=== PATIENT | female | born 2000 | race Caucasian/White ===

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

== ENCOUNTER → 2022-03-17 16:41 | Outpatient (CLI) | payer OTHER, SELFPAY ==
[2022-03-17 20:01] LABS: HCG,Quantitative 46 mIU/ml (0-5.42)
== END ==
PROVIDERS: PCP Nurse Practitioner Pediatrics; Visit Provider Obstetrics & Gynecology
DX: Z34.90 Encounter for supervision of normal pregnancy, unspecified, unspecified trimester (principal)
CPT/HCPCS: 36415; 84702

== ENCOUNTER → 2022-03-28 16:49 | Outpatient (CLI) | payer OTHER, SELFPAY ==
[2022-03-28 19:08] LABS: HCG,Quantitative 5783 mIU/ml (0-5.42)
== END ==
PROVIDERS: PCP Obstetrics & Gynecology; Visit Provider Obstetrics & Gynecology
DX: Z34.91 Encounter for supervision of normal pregnancy, unspecified, first trimester (principal)
CPT/HCPCS: 36415; 84702

== ENCOUNTER → 2022-04-01 15:00 | Outpatient (CLI) | payer OTHER, SELFPAY ==
[2022-04-05 00:09] LABS: Neisseria gonorrhoeae, NAA Negative (Negative)
== END ==
PROVIDERS: Visit Provider Obstetrics & Gynecology
DX: Z34.90 Encounter for supervision of normal pregnancy, unspecified, unspecified trimester (principal)
CPT/HCPCS: 87491; 87591

== ENCOUNTER → 2022-05-08 15:23 | Outpatient (CLI) | payer OTHER, SELFPAY ==
[2022-05-08 18:57] LABS: Basophils # 0.1 K/mm3 (0-0.2); Basophils % 0.6 % (0.1-2.0); Eosinophils # 0.2 K/mm3 (0.0-0.4); Eosinophils % 2.8 % (0.1-12.0); Hematocrit 39.9 % (37.0-47.0); Hemoglobin 13.3 g/dL (12.2-16.2); Lymphocytes % 26.6 % (10-50); Mean Corpuscular HGB Conc 33.3 g/dL (31.8-35.4); Mean Corpuscular Hemoglobin 29.9 pg (27.0-31.2); Mean Corpuscular Volume 89.7 fl (81-99); Mean Platelet Volume 8.2 fl (7.4-10.4); Monocytes # 0.3 K/mm3 (0.1-1.0); Monocytes % 4.5 % (1.7-9.3); Neutrophils % 65.4 % (37.0-80.0); Platelet Count 276 K/mm3 (142-424); Red Blood Count 4.45 M/mm3 (4.20-5.40); Red Cell Distribution Width 13.3 % (11.5-17.5); White Blood Count 7.6 K/mm3 (4.5-13.0)
[2022-05-10 06:10] LABS: Rubella Antibodies, IgG 1.53 index (Immune >0.99)
[2022-05-10 14:46] LABS: Rapid Plasma Reagin Ab Titer Non Reactive (NonRea<1:1)
[2022-05-26 20:19] LABS: HIV Screen 4th Generation wRfx NON REACTIVE; Hepatitis B Surface Antigen NEGATIVE; Hepatitis C Antibody <0.1
== END ==
PROVIDERS: Visit Provider Obstetrics & Gynecology
DX: Z34.90 Encounter for supervision of normal pregnancy, unspecified, unspecified trimester (principal)
CPT/HCPCS: 36415; 85025; 86592; 86703; 86762; 86850; 87340; 87380; G0432

== ENCOUNTER → 2022-07-15 14:17 | Outpatient (CLI) | payer OTHER, SELFPAY ==
--- NOTE | 2022-07-15 14:17 | US_ITS ---
FINAL REPORT CLINICAL HISTORY: 20 week anatomy scan FINDINGS: There is a single live intrauterine gestation. Presentation is breech. The cervix is closed and measures 3.6 cm. Placenta is anterior grade 1. movement is noted. Heart rate measures 150 beats per minute. Three-vessel cord with satisfactory umbilical cord insertion. Four-chamber heart is noted. brain and ventricles are unremarkable. Chest and diaphragm are unremarkable. ABDOMEN: Both kidneys are unremarkable. Stomach is unremarkable. SPINE: No anomalies identified. Both arms and legs noted. AMNIOTIC FLUID: Appropriate amount. MEASUREMENTS: ULTRASOUND AGE: 20 weeks 3 days. GESTATION AGE: 20 weeks 5 days. ESTIMATED WEIGHT: 356 g GROWTH PERCENTILE: 32% LMP percentile BPD: 4.7 cm corresponding with 20 weeks 2 days. OFD: 6.3 cm corresponding with 21 weeks 0 days. HC: 17.4 cm corresponding with 20 weeks 0 days. AC: 15.4 cm corresponding to 20 weeks 4 days. FL: 3.4 cm corresponding with 20 weeks 4 days. CEREBELLUM: 2.1 cm corresponding with 21 weeks 0 days. HUMERUS: 3.2 cm corresponding with 21 weeks 0 days. HC/AC: 1.13 CI: 75% FL/BPD: 72% FL/AC: 22% IMPRESSION: Single living IUP with an ultrasound age of 20 weeks 3 days. No gross anomalies noted. Reviewed, Interpreted and Dictated by Capo Noel III, MD Transcribed by Tracy Ro Authenticated and [facility]
== END ==
PROVIDERS: PCP Obstetrics & Gynecology; Visit Provider Obstetrics & Gynecology
DX: Z34.90 Encounter for supervision of normal pregnancy, unspecified, unspecified trimester (principal); Z3A.20 20 weeks gestation of pregnancy
CPT/HCPCS: 76811

== ENCOUNTER → 2022-09-02 09:21 | Outpatient (CLI) | payer OTHER, SELFPAY ==
[2022-09-02 09:40] LABS: Basophils % 0.2 % (0.1-2.0); Eosinophils # 0.4 K/mm3 (0.0-0.4); Eosinophils % 3.4 % (0.1-12.0); Hematocrit 38.1 % (37.0-47.0); Hemoglobin 12.4 g/dL (12.2-16.2); Lymphocytes # 1.9 K/mm3 (0.7-4.5); Lymphocytes % 17.6 % (10-50); Mean Corpuscular HGB Conc 32.4 g/dL (31.8-35.4); Mean Corpuscular Hemoglobin 29.3 pg (27.0-31.2); Mean Corpuscular Volume 90.5 fl (81-99); Mean Platelet Volume 8.1 fl (7.4-10.4); Monocytes # 0.6 K/mm3 (0.1-1.0); Monocytes % 5.6 % (1.7-9.3); Neutrophils # 7.7 K/mm3 (1.8-7.8); Neutrophils % 73.2 % (37.0-80.0); Platelet Count 240 K/mm3 (142-424); Red Blood Count 4.21 M/mm3 (4.20-5.40); White Blood Count 10.5 K/mm3 (4.8-10.8)
[2022-09-02 09:53] LABS: Glucose,Fasting 98 mg/dl (74-100)
[2022-09-02 11:53] LABS: Glucose 1 Hour 88 mg/dL (74-100)
== END ==
PROVIDERS: PCP Nurse Practitioner Family; Visit Provider Obstetrics & Gynecology
DX: Z34.90 Encounter for supervision of normal pregnancy, unspecified, unspecified trimester (principal)
CPT/HCPCS: 36415; 82951; 85025

== ENCOUNTER → 2022-10-21 10:15 | Outpatient (CLI) | payer OTHER, SELFPAY ==
--- NOTE | 2022-10-21 10:16 | US_ITS ---
FINAL REPORT CLINICAL HISTORY: sga growth and umbilical dopplers performed as well FINDINGS: There is a single live intrauterine gestation. Presentation is cephalic. The cervix is closed and measures 4.1 cm. Placenta is anterior grade 1. Fetus is active. No gross anomaly identified. The S/D is 2.88. Amniotic fluid is appropriate amount. heart rate detected at 147 beats per minute. MEASUREMENTS: ULTRASOUND AGE: 34 weeks 6 days. GESTATION AGE: 34 weeks 5 days. ESTIMATED WEIGHT: 2472 g GROWTH PERCENTILE: 42% BPD: 8.33 cm corresponding to 33 weeks 4 days. HC: 32.04 cm corresponding to 36 weeks 1 day. AC: 30.65 cm corresponding to 34 weeks 5 days. FL: 6.70 cm corresponding to 34 weeks 4 days. HUMERUS: 5.84 cm corresponding to 33 weeks 6 days. HC/AC: 1.05 FL/BPD: 80 % FL/AC: 22% BREATHIN MOVEMENT: 2 TONE: 2 FLUID VOLUME: 2 BPP SCORE: 8 IMPRESSION: Single living IUP with an ultrasound age of 34 weeks 6 days. BPP SCORE: 8/8 Reviewed, Interpreted and Dictated by Mathew Dejesus MD Transcribed by Renata Baird Authenticated and [facility]
== END ==
PROVIDERS: PCP Nurse Practitioner Family; Visit Provider Obstetrics & Gynecology
DX: O36.5990 Maternal care for other known or suspected poor fetal growth, unspecified trimester, not applicable or unspecified (principal)
CPT/HCPCS: 76816; 76819; 76820

== ENCOUNTER → 2022-11-08 09:00 | Outpatient (CLI) | payer OTHER, SELFPAY | PROVIDERS: Visit Provider Obstetrics & Gynecology | DX: Z34.93 Encounter for supervision of normal pregnancy, unspecified, third trimester (principal); Z3A.31 31 weeks gestation of pregnancy | CPT/HCPCS: 86403 ==

== ENCOUNTER 2022-11-14 13:48 | Outpatient (CLI) | payer OTHER, SELFPAY ==
[2022-11-14 14:06] VITALS: BMI 36.6
[2022-11-14 14:11] VITALS: BP 126/83; PULSE 105; RESP 16; TEMP 37.1; O2SAT 95; BMI 36.6
[2022-11-14 14:16] LABS: Microscopic, Urine URINE MICROSCOPIC (MICROSCOPIC)
[2022-11-14 14:20] LABS: Appearance,Urine CLEAR (Clear); Bilirubin,Urine Negative (Negative); Blood, Urine Negative (Negative); Color,Urine YELLOW (Yellow); Glucose,Urine (UA) Negative (Negative); Ketones,Urine Negative (Negative); Leukocyte Esterase,Urine Negative (Negative); Nitrate,Urine Negative (Negative); Protein,Urine Negative (Negative); Specific Gravity, Urine 1.015 (1.005-1.030)
[2022-11-14 14:26] LABS: Bacteria,Urine Trace /lpf; WBC,Urine Occasional #/hpf (0-3)
[2022-11-14 14:31] LABS: Amphetamine/Metha Screen,Urine Negative ng/ml (<1000); Benzodiazepines Screen,Urine Negative ng/ml (<200)
[2022-11-14 14:32] LABS: Barbiturates Screen,Urine Negative ng/ml (<200)
[2022-11-14 14:33] LABS: Cocaine Screen,Urine Negative ng/ml (<300)
[2022-11-14 14:34] LABS: Methadone Screen,Urine Negative ng/ml (<300); Opiate Screen,Urine Negative ng/ml (<300)
[2022-11-14 14:35] LABS: Phencyclidine Screen,Urine Negative ng/ml (<25)
[2022-11-14 14:41] LABS: Cannabinoid Screen,Urine Negative ng/ml (<50)
== END 2022-11-14 15:47 | disposition home or self-care (01) ==
LOC: OBOUT 13:50 → OB 13:50
PROVIDERS: Visit Provider Nurse Practitioner Obstetrics & Gynecology
DX: Z34.93 Encounter for supervision of normal pregnancy, unspecified, third trimester (principal); Z3A.38 38 weeks gestation of pregnancy
CPT/HCPCS: 59025; 80305; 81001; G0463

== ENCOUNTER 2022-11-17 04:50 | Inpatient (IN) | payer OTHER, SELFPAY ==
[2022-11-17] VITALS (7 sets, daily range): BP systolic 122–126; BP diastolic 64–74; PULSE 83–110; RESP 18–20; TEMP 36.5–36.9; O2SAT 96–100; BMI 36.6
[2022-11-17 06:11] LABS: Basophils % 0.3 % (0.1-2.0); Coronavirus 19, PCR Not Detected (NotDetected); Eosinophils # 0.3 K/mm3 (0.0-0.4); Eosinophils % 3.9 % (0.1-12.0); Hematocrit 34.7 % (37.0-47.0); Hemoglobin 11.2 g/dL (12.2-16.2); Influenza A, PCR Not Detected (NotDetected); Influenza B, PCR Not Detected (NotDetected); Lymphocytes # 1.9 K/mm3 (0.7-4.5); Lymphocytes % 24.5 % (10-50); Mean Corpuscular HGB Conc 32.4 g/dL (31.8-35.4); Mean Corpuscular Volume 83.5 fl (81-99); Mean Platelet Volume 8.7 fl (7.4-10.4); Monocytes # 0.6 K/mm3 (0.1-1.0); Monocytes % 7.8 % (1.7-9.3); Neutrophils # 4.8 K/mm3 (1.8-7.8); Neutrophils % 63.6 % (37.0-80.0); Platelet Count 213 K/mm3 (142-424); Red Blood Count 4.16 M/mm3 (4.20-5.40); Red Cell Distribution Width 14.7 % (11.5-17.5); White Blood Count 7.6 K/mm3 (4.8-10.8)
--- NOTE | 2022-11-17 09:20 | EXP.HP ---
History of Present Illness *Admission Date: 11/17/22 *Reason for visit:: Induction of labor *History of present illness: 22 yo @ 38 08/29 Admission for induction of labor care at [facility]-- Dr. Stark OB history significant for previous at 40 wks EFW for this was 42% at 34 weeks with appropriate NAV and G1 placenta She has been symptomatic with anemia (Hgb 11.2) and concerned about intemittently decreased movement has been otherwise uncomplicated GBS negative [facility] Disclaimer: The information contained in this section may have been updated after the patient was seen, as this information can be updated by other users. Medical History Surgical History No history of previous surgery Family History Other No significant family history Social History Smoking Status: Never smoker alcohol intake: never substance use type: denies use current occupational status: employed Travel in the last 8 weeks: None Review of Systems Review of Systems Review of systems:: pertinent systems reviewed and negative unless documented below Review of systems (narrative): intermittent decrease in movement Constitutional Constitutional: Reports fatigue and Denies headache(s) ENT Ears, Nose, Mouth, and Throat: Denies headache(s) *Cardiovascular Cardiovascular: Reports rapid heart rate *Genitourinary Genitourinary: Denies abnormal vaginal bleeding Comments: + contractions *Musculoskeletal Musculoskeletal: Reports back pain *Neurologic Neurologic: Denies headache(s) and Denies other visual disturbances Endocrine Endocrine: Reports fatigue Meds Home Medications and Allergies Home Medications Medication Instructions Recorded Confirmed Type vit no.95-ferrous 1 tab PO DAILY Supplement 11/17/22 11/17/22 History fumarate 28 mg-folic acid 800 mcg tablet () New Prescriptions to Start Prescriptions: Allergies Allergy/AdvReac Type Severity Reaction Status Date / Time No Known Allergies Allergy Verified 11/13/22 15:33 Exam Data for Last 24 hours Vital signs and Labs for Last 24 Hours: Temp Pulse Resp BP Pulse Ox 97.7 F 92 H 18 125/69 96 11/17/22 07:30 06/26/23 07:30 11/17/22 07:30 11/17/22 07:30 11/17/22 07:30 Laboratory Results - last 24 hr 11/17/22 05:05: WBC 7.6, RBC 4.16 L, Hgb 11.2 L, Hct 34.7 L, MCV 83.5, MCH 27.0, MCHC 32.4, RDW 14.7, Plt Count 213, MPV 8.7, Neut % (Auto) 63.6, Lymph % (Auto) 24.5, [place] % (Auto) 7.8, Eos % (Auto) 3.9, Baso % (Auto) 0.3, Neut # (Auto) 4.8, Lymph # (Auto) 1.9, [place] # (Auto) 0.6, Eos # (Auto) 0.3, Baso # (Auto) 0.0 11/17/22 05:05: SARS-CoV-2 (PCR) Not detected, Influenza A Untype (PCR) Not detected, Influenza Type B (PCR) Not detected 11/17/22 05:05: Blood Type A Positive, Antibody Screen Negative I & O for Last 24 hours: Intake & Output 11/14/22 11/15/22 11/16/22 11/17/22 11:59 11:59 11:59 11:59 Weight 207 lb 0.013 oz Constitutional Constitutional: no acute distress *Routine HEENT Exam Head: Present normocephalic Eye: Absent conjunctival icterus or scleral injection ENT: Present mucous membranes moist *Routine Neck Exam Neck: Present supple *Routine Respiratory Exam Respiratory: Present CTA bilaterally; Absent respiratory distress *Routine Cardiovascular Exam Cardiovascular: Present RRR *Routine Abdominal Exam Abdominal: Present soft; Absent tenderness or distended *Routine Rectal Exam Rectal:: deferred *Routine Genitalia Exam Genitalia:: normal female Comment:: Cervix 3/70/-2 AROM with clear fluid IUPC and FSE placed without difficulty or complication *Routine Extremities Exam Extremities: Present edema (1+) *Routine Skin Exam
--- NOTE | 2022-11-17 12:44 | P.PN_ITS ---
[facility] Disclaimer: The information contained in this section may have been updated after the patient was seen, as this information can be updated by other users. Medical History Surgical History No history of previous surgery Family History Other No significant family history Social History Smoking Status: Never smoker alcohol intake: never substance use type: denies use current occupational status: employed Travel in the last 8 weeks: None [facility] Anesthesia Checklist Patient Identification Patient Identification: Arm Band Structural Data Admitted From: Inpatient Planned Operative Procedure/s: Labor epidural Consent for Planned Operative Procedure(s) Verified: Yes NPO Status Verified Time NPO: 00:00 Chart Verification Results Verified: CBC Additional verifications Patient : Yes Anesthesia Reactions: No Airway Assessment C-Spine Mobility Assessed: Yes TMJ Mobility Assessed: Yes Dentition: Good Dentition Neurological Assessment Level of Consciousness: Awake Hx Seizures: No Numbness or tingling in extremities: No Anesthesia Plan Anesthesia Risk discussed: Yes Anesthesia Plan: Verified ASA Class: II Anesthesia Type: Epidural
--- NOTE | 2022-11-17 20:47 | EXP.DN ---
Delivery Note Delivery Date:: 11/17/22 Delivery Time:: 20:24 Anesthesia Type: Epidural Was labor medically induced?: Yes Induction method: per pitocin protocol Gestational age (weeks): 38 delivered prior to 39 weeks?: Yes Justification for early elective delivery:: Blood/Immune Disorder Gender: Female at 1 minute: 7 at 5 minutes: 9 Delivery Procedure:: Progression from 5cm to complete in less than 2 hours Spontaneous vaginal delivery of live born female infant over intact perineum. Delivery was uncomplicated, and pushing occurred over 2 contractions Nuchal cord x 2 reduced on perineum No shoulder dystocia with delivery Infant taken to radiant warmer immediately after delivery, with standard nursing assessment performed Apgars: 7 & 9 Placenta spontaneously expressed and examined; noted to be complete/intact. The uterus was manually evacuated of clot and fundal massage performed following delivery of placenta Vulva, vagina, and cervix inspected; no perineal, vaginal or cervical lacerations present EBL: 300 cc Cord segment preserved, per protocol All sponge/needle/instrument counts correct at conclusion of procedure Infant was placed in JULIA after nursing assessment completed; with mother and infant both in stable condition following delivery Placental Delivery Description: Spontaneous
[2022-11-18 02:52] LABS: Microscopic, Urine URINE MICROSCOPIC (MICROSCOPIC)
[2022-11-18 02:53] LABS: Appearance,Urine CLOUDY (Clear); Bilirubin,Urine Negative (Negative); Blood, Urine Negative (Negative); Color,Urine YELLOW (Yellow); Glucose,Urine (UA) Negative (Negative); Ketones,Urine Negative (Negative); Leukocyte Esterase,Urine 3+ (Negative); Nitrate,Urine Negative (Negative); PH,Urine 6.5 (5.0-8.5); Protein,Urine Negative (Negative); Specific Gravity, Urine 1.025 (1.005-1.030); Urobilinogen,Urine 0.2 EU/dl (0.2)
[2022-11-18 03:06] LABS: Amphetamine/Metha Screen,Urine Negative ng/ml (<1000)
[2022-11-18 03:07] LABS: Barbiturates Screen,Urine Negative ng/ml (<200)
[2022-11-18 03:08] LABS: Benzodiazepines Screen,Urine Negative ng/ml (<200); Cannabinoid Screen,Urine Negative ng/ml (<50)
[2022-11-18 03:09] LABS: Cocaine Screen,Urine Negative ng/ml (<300); Methadone Screen,Urine Negative ng/ml (<300)
[2022-11-18 03:10] LABS: Phencyclidine Screen,Urine Negative ng/ml (<25)
[2022-11-18 03:11] LABS: Opiate Screen,Urine Negative ng/ml (<300)
[2022-11-18 03:46] LABS: Amorphous Sediment,Urine 1+ /lpf; Bacteria,Urine 1+ /lpf; Mucus,Urine 1+ /lpf; WBC,Urine 20-50 #/hpf (0-3)
[2022-11-18 06:43] LABS: Hemoglobin 10.5 g/dL (12.2-16.2)
[2022-11-18 07:26] VITALS: BP 115/63; PULSE 80; RESP 20; TEMP 36.6; O2SAT 100
[2022-11-18 11:47] VITALS: BP 122/71; PULSE 82; RESP 18; TEMP 36.5; O2SAT 98
--- NOTE | 2022-11-18 13:16 | EXP.ACUTE.PN ---
Subjective *Date: 11/18/22 *Time: 13:22 Interval history: PPD # 1 No unusual complaints Ambulating and voiding without difficulty Tolerating regular diet Lochia appropriate Pain control is sufficient She is bottle feeding Infant is doing well Medical Exam Vital signs and Labs for Last 24 Hours: Vital Signs Temp Pulse Resp BP Pulse Ox 11/18/22 11:47 97.7 F 82 18 122/71 98 11/18/22 07:26 97.8 F 80 20 115/63 100 11/17/22 18:16 98.1 F 11/17/22 16:12 97.7 F 11/17/22 14:08 97.8 F 11/17/22 15:50 97.8 F 87 20 122/64 100 Intake and Output 11/18/22 11/18/22 11/18/22 03:59 11:59 19:59 Output Total 400 / 1300 Balance -400 / -1300 Output: Output, Urine Amount (Catheter) 400 / 400 Mejia 400 / 400 Laboratory Results - last 24 hr 11/17/22 21:50: Urine Color Yellow, Urine Appearance Cloudy, Urine pH 6.5, Ur Specific [place] 1.025, Urine Protein Negative, Urine Glucose (UA) Negative, Urine Ketones Negative, Urine Blood Negative, Urine Nitrate Negative, Urine Bilirubin Negative, Urine Urobilinogen 0.2, Ur Leukocyte Esterase 3+ A, Urine WBC 20-50, Ur Squamous Epith Cells 3-5, Amorphous Sediment 1+, Urine Bacteria 1+, Urine Mucus 1+ 11/17/22 21:50: Urine Opiates Screen Negative, Urine Methadone Screen Negative, Ur Barbituates Screen Negative, Ur Phencyclidine Scrn Negative, Ur Amphetamines Screen Negative, U Benzodiazepines Scrn Negative, Urine Cocaine Screen Negative, U Marijuana (THC) Screen Negative 11/18/22 06:21: Hgb 10.5 L, Hct 32.0 L I & O for Labs for Last 24 Hours: Intake & Output 11/16/22 11/17/22 11/18/22 11/19/22 11:59 11:59 11:59 11:59 Output Total 1300 / 1300 Balance -1300 / -1300 Weight 207 lb 0.013 oz Comment:: No acute distress Comment:: breathing unlabored Comment:: Regular rate, normal peripheral pulses Comments:: abdomen soft, non-tender, non-distended Comment:: uterine fundus firm below umbilicus Comment:: 1+ edema bilateral lower extremities Comment:: no rash Assessment and Plan *Assessment and plan (1) 38 weeks gestation of : Status: Acute Category: Medical Code(s): Z3A.38 - 38 weeks gestation of (2) Anemia affecting : Status: Acute Category: Medical Code(s): O99.019 - Anemia complicating , unspecified trimester (3) Normal spontaneous vaginal delivery: Status: Acute Category: Medical Code(s): O80 - Encounter for full-term uncomplicated delivery Plan Routine care Continue FeSO4 Anticipate discharge home tomorrow
[2022-11-18 15:40] VITALS: BP 135/65; PULSE 78; RESP 20; TEMP 36.6; O2SAT 98
--- NOTE | 2022-11-19 09:09 | EXP.DC.SUM ---
General Admission date:: 11/17/22 Discharge date: 11/19/22 HPI HPI HPI: 22 yo @ 38 08/29 Admission for induction of labor care at [facility]-- Dr. Stark OB history significant for previous at 40 wks EFW for this was 42% at 34 weeks with appropriate NAV and G1 placenta She has been symptomatic with anemia (Hgb 11.2) and concerned about intemittently decreased movement has been otherwise uncomplicated GBS negative Hospital Course Hospital Course Hospital Course: She was admitted and started on IV oxytocin. She progressed to full dilation and delivered spontaneously a liveborn female child at 8:24 PM in the evening of November 17, 2022. The baby had Apgars of 7 at 1 minute and 9 at 5 minutes. Baby weighed 8 pounds 1 ounce. She was 20-1/2 inches long. She has done well and has remained afebrile with her hospitalization. She is eating and drinking and ambulating. She is bottlefeeding. She has a positive blood, she is rubella immune and was group B streptococcus negative. She will be discharged home to follow-up with Dr. Stark in approximately 2 to 3 weeks time. She will continue with her vitamins and iron. She is given the usual instructions with respect to limiting her activity, driving and sexual activity. She is not sure what type of control she would like to have . Her condition on discharge is stable and improved. Exam Data for Last 24 hours Vital signs and Labs for Last 24 Hours: Temp Pulse Resp BP Pulse Ox 97.8 F 78 20 135/65 98 11/18/22 15:40 11/18/22 15:40 11/18/22 15:40 11/18/22 15:40 11/18/22 15:40 I & O for Last 24 hours: Intake & Output 11/16/22 11/17/22 11/18/22 11/19/22 11:59 11:59 11:59 11:59 Output Total 1300 / 1300 0 / 0 Balance -1300 / -1300 0 / 0 Weight 207 lb 0.013 oz Microbiology Reports for the Last 24 Hours: Microbiology 11/17/22 21:50 Urine,Clean Catch Urine Culture - Preliminary NO GROWTH AFTER 24 HOURS Constitutional Constitutional: no acute distress *Routine HEENT Exam Head: Present normocephalic *Routine Neck Exam Neck: Present full ROM *Routine Respiratory Exam Respiratory: Present normal respiratory effort Results Data Completed and Pending Labs on day of discharge: Preliminary micro results at discharge 11/17/22 21:50 Urine Culture - Preliminary Urine,Clean Catch NO GROWTH AFTER 24 HOURS DS: Diagnosis Discharge Diagnosis (1) 38 weeks gestation of : Status: Acute Code(s): Z3A.38 - 38 weeks gestation of (2) Anemia affecting : Status: Acute Code(s): O99.019 - Anemia complicating , unspecified trimester (3) Normal spontaneous vaginal delivery: Status: Acute Code(s): O80 - Encounter for full-term uncomplicated delivery Meds Home Medications and Allergies Home Medications Medication Instructions Recorded Confirmed Type vit no.95-ferrous 1 tab PO DAILY Supplement 11/17/22 11/17/22 History fumarate 28 mg-folic acid 800 mcg tablet () New Prescriptions to Start Prescriptions: Allergies Allergy/AdvReac Type Severity Reaction Status Date / Time No Known Allergies Allergy Verified 11/13/22 15:33 Discharge Plan Disposition Patient Disposition: Home, Self-Care Discharge Order Discharge Orders: Discharge Order (Routine); Ordered 11/19/22 Ordered By: Kamaljit Barker Follow up Plan Prescriptions/Medication Reconciliation: Continued PNV cmb#95-ferrous fumarate-FA [] 28 mg iron- 800 mcg Tablet 1 tab PO DAILY Problem Reconciliation Problems Reviewed?: Yes Patient Discharge Instructions ACTIVITY: No heavy lifting DIET: continue same diet Additional Instructions: *No heavy lifting* *No strenuous activity* *Nothing in the vagina for 6 weeks* *No tub baths for 6 weeks* Waylon
[2022-11-19 09:20] VITALS: BP 104/53; PULSE 86; RESP 16; TEMP 36.6; O2SAT 97
== END 2022-11-19 11:50 | disposition home or self-care (01) | DRG 807 ==
PROVIDERS: Admitting Provider Obstetrics & Gynecology; PCP Nurse Practitioner Family; Visit Provider Obstetrics & Gynecology
DX: O36.8130 Decreased fetal movements, third trimester, not applicable or unspecified (principal); Z37.0 Single live birth; O99.02 Anemia complicating childbirth; O99.214 Obesity complicating childbirth; Z3A.38 38 weeks gestation of pregnancy; O69.81X0 Labor and delivery complicated by cord around neck, without compression, not applicable or unspecified; E66.01 Morbid (severe) obesity due to excess calories
CPT/HCPCS: 59409; 59025; 80305; 81001; 85014; 85018; 85025; 86850; 87086; 87636; 94761; C1758; C9803; G0283; G0463; J2405; U0003; U0005

== ENCOUNTER 2023-09-05 17:44 | Day surgery (SDC) | payer MEDICAID, SELFPAY ==
--- NOTE | 2023-09-05 17:53 | CT_ITS ---
PROCEDURE INFORMATION: Exam: CT Chest With Contrast; Diagnostic Exam date and time: 09/05/2023 6:41 PM Age: 23 years old Clinical indication: Other: Dysphagia; Additional info: Chronic dysphagia, possible food bolus TECHNIQUE: Imaging protocol: Diagnostic computed tomography of the chest with contrast. Radiation optimization: All CT scans at this facility use at least one of these dose optimization techniques: automated exposure control; mA and/or kV adjustment per patient size (includes targeted exams where dose is matched to clinical indication); or iterative reconstruction. Contrast material: ISOVUE; Contrast volume: 75 ml; Contrast route: IV; COMPARISON: No relevant prior studies available. FINDINGS: Lungs: Normal. Pleural spaces: Unremarkable. No pneumothorax. No pleural effusion. Heart: Normal. Esophagus: 3.6 x 1.9 cm heterogeneous collection of material within the distal thoracic esophagus, with minimal surrounding esophageal wall thickening and mild gas and fluid dilation of the proximal thoracic esophagus. Lymph nodes: No pathologically-enlarged lymph nodes. Vasculature: Unremarkable. No aortic aneurysm. Bones/joints: No acute fracture. Soft tissues: Normal. IMPRESSION: 3.6 x 1.9 cm heterogeneous collection of material within the distal thoracic esophagus, with minimal surrounding esophageal wall thickening and mild gas and fluid dilation of the proximal thoracic esophagus. Findings most compatible with impacted food bolus, with mild esophageal edema and esophageal obstruction. No evidence of esophageal perforation.
[2023-09-05 17:55] VITALS: BP 123/93; PULSE 106; RESP 18; TEMP 37.3; O2SAT 95; BMI 37.2
--- NOTE | 2023-09-05 17:55 | HMH.EDGENADL ---
Discharge Plan Disposition Patient Disposition: Still a Patient Condition: Good Clinical Impressions Clinical Impression: Acute esophageal obstruction Discharge ED Provider: Manoj Alicea General Adult HPI General Chief complaint: Nausea/Vomiting/Diarrhea Stated complaint: Sore throat,vomiting,tightening in throat Time Seen by Provider: 09/05/23 17:48 History of Present Illness HPI narrative: Patient is a 23-year-old female with past medical history of chronic dysphagia who presents emergency department for evaluation of abnormal sensation in her throat. Patient is allergic to egg whites, fish. She ate a hotdog few hours prior to arrival and has had a scratchy feeling in her throat with inability to pass solids or liquids with swallowing. Due to this she presents here for continued evaluation. Patient has never had esophageal obstruction before. She has not had her dysphagia for months evaluated due to missing her appointment with GI as she could not get off work. No abdominal pain, no other acute complaints at this time. Symptoms refractory to Benadryl at home. Related Data Home Medications Medication Instructions Recorded Confirmed vit no.95-ferrous 1 tab PO DAILY Supplement 11/17/22 12/01/22 fumarate 28 mg-folic acid 800 mcg tablet () Allergies Allergy/AdvReac Type Severity Reaction Status Date / Time No Known Allergies Allergy Verified 12/01/22 09:43 [facility] Disclaimer: The information contained in this section may have been updated after the patient was seen, as this information can be updated by other users. Surgical History No history of previous surgery Family History Other No significant family history Social History Smoking Status: Current every day smoker alcohol intake: never substance use type: denies use current occupational status: employed Travel in the last 8 weeks: None ROS Obtained: Yes Systems reviewed as appropriate & no additional complaints except as documented Physical Exam General General appearance: alert and in no apparent distress Head Head exam: atraumatic and normocephalic Eye Eye exam: Present PERRL and EOMI ENT ENT exam: Present normal oropharynx and mucous membranes moist Neck Neck exam: Present normal inspection Chest Chest inspection: Present normal inspection and symmetric chest wall rise Respiratory Respiratory exam: Present normal lung sounds bilaterally; Absent respiratory distress Cardiovascular Cardiovascular exam: Present regular rate and normal rhythm Abdominal Exam Abdominal exam: Present soft; Absent tenderness Extremities Exam Extremities exam: Present normal inspection Neurological Exam Neurological exam: Present alert Psychiatric Psychiatric exam: Present normal affect Skin Skin exam: Present warm and dry Medical Decision Making Elijah Inquiry Pt receiving controlled substance: No Vital Signs: 09/05/23 17:55 09/05/23 18:31 09/05/23 19:23 Temperature 99.1 F 98.0 F Temperature Source Oral Oral Pulse Rate 107 H 79 Pulse Rate [Right] 106 H Respiratory Rate 18 16 Blood Pressure 132/75 124/95 H Blood Pressure [Right Arm] 123/93 H Blood Pressure Mean [Right Arm] 103 Blood Pressure Source Automatic Cuff Blood Pressure Position Sitting 02 Sat by Pulse Oximetry 95 97 Oxygen Delivery Method Room Air Room Air Lab Data Lab Results 09/05/23 18:06: WBC 7.0, RBC 5.18, Hgb 15.1, Hct 47.0, MCV 90.7, MCH 29.2, MCHC 32.2, RDW 14.3, Plt Count 280, MPV 7.5, Neut % (Auto) 52.8, Lymph % (Auto) 36.8, [place] % (Auto) 4.9, Eos % (Auto) 3.2, Baso % (Auto) 2.4 H, Neut # (Auto) 3.7, Lymph # (Auto) 2.6, [place] # (Auto) 0.3, Eos # (Auto) 0.2, Baso # (Auto) 0.2, Sodium 143, Potassium 3.6, Chloride 107, Carbon Dioxide 28, Anion Gap 11.6, BUN 10, Creatinine 0.90, Estimated Creat Clear 147, Estimated GFR 78, Est GFR ( Amer) 95, Glucose 105 H, Calcium 10.0, Serum HCG, Qual Negative 09/05/23 18:06 09/05/23 18:06 Orders (Tests/Meds): ED MEDICATIONS Discontinued Medications Generic Name Dose Route Start Last Admin Trade Name Freq PRN Reason Stop Dose Admin Iopamidol 75 ml 09/05/23 18:42 09/05/23 18:43 Iopamidol-370 (76%);100ml Bottle IV 09/05/23 18:43 75 ml ONCE ONE Administration Methylprednisolone Sodium Succinate 125 mg 09/05/23 17:56 09/05/23 18:02 Methylprednisolone Sod Succ 125mg Vial IV 09/05/23 17:57 125 mg ONCE ONE Administration Ondansetron HCl 4 mg 09/05/23 17:55 09/05/23 18:02 Ondansetron 4mg/2ml Vial IV 09/05/23 17:56 4 mg ONCE ONE Administration Sodium Chloride 10 ml 09/05/23 18:42 09/05/23 18:43 Sodium Chloride 0.9% 10ml Syr (Rad Only) IV 09/05/23 18:43 10 ml ONCE ONE Administration ORDERS Category Date Time Status CT chest w con Stat Cat Scan 09/05/23 17:53 Completed BMP [Basic Metabolic Panel] Stat Lab 09/05/23 18:06 Completed CBC w/Auto Diff [Complete Blood Count Auto Diff] Stat Lab 09/05/23 18:06 Completed HCG Qualitative, Serum Stat Lab 09/05/23 18:06 Completed Medical Decision Narrative: In summary patient is a 23-year-old female past medical history described above who presents emergency department for scratchy sensation in throat and inability to swallow with history of chronic dysphagia that is yet to be evaluated. Patient is hemodynamically stable nontoxic-appearing upon arrival, afebrile. Differential diagnosis includes esophageal food bolus, Schatzki's ring, esophagitis, among others. Workup will be conducted with hematologic labs, hCG, CT chest with IV contrast. Initial interventions include Zofran. Workup reviewed by me, hematologic labs are nonactionable, hCG negative. CT informally interpreted by me, there appears to be a distal esophageal obstruction with proximal fluid-filled esophagus. The case was discussed with Dr. Lynn regarding management patient will proceed to operating room for EGD at this time. Interval update: Formal read shows 3.6 x 1.9 cm heterogenous collection of material in distal esophagus with minimal surrounding esophageal wall thickening consistent with impacted food bolus, no evidence of esophageal perforation. Critical Care Critical Care Time Critical Care Time: No
[2023-09-05] MEDS: METHYLPREDNISOLONE SOD SUCC 125MG VIAL 125 MG IV (18:02)
[2023-09-05] MEDS: ONDANSETRON 4MG/2ML VIAL 4 MG IV (18:02)
[2023-09-05 18:23] LABS: Chloride 107 mmol/L (98-107); Potassium 3.6 mmoL/L (3.5-5.1); Sodium 143 mmol/L (136-145)
[2023-09-05 18:26] LABS: Anion Gap 11.6 mEq/L (5-15); Blood Urea Nitrogen 10 mg/dl (7-17); Carbon Dioxide 28 mmol/L (22.0-30.0); Creatinine Clearance Estimated 147 mL/min (50-200); Estimated Glomerular Filt Rate 78 ml/min (>60); GFR (African American) 95 ML/MIN (>60); Glucose 105 mg/dl (74-100)
[2023-09-05 18:28] LABS: HCG Qualitative, Serum Negative (Negative)
--- NOTE | 2023-09-05 18:29 | PC.NURSE ---
pt unable to tolerate po intake @ this time
[2023-09-05 18:31] VITALS: BP 132/75; PULSE 107; O2SAT 97
[2023-09-05 18:34] LABS: Basophils # 0.2 K/mm3 (0-0.2); Basophils % 2.4 % (0.1-2.0); Eosinophils # 0.2 K/mm3 (0.0-0.4); Eosinophils % 3.2 % (0.1-12.0); Hemoglobin 15.1 g/dL (12.2-16.2); Lymphocytes # 2.6 K/mm3 (0.7-4.5); Lymphocytes % 36.8 % (10-50); Mean Corpuscular HGB Conc 32.2 g/dL (31.8-35.4); Mean Corpuscular Hemoglobin 29.2 pg (27.0-31.2); Mean Corpuscular Volume 90.7 fl (81-99); Mean Platelet Volume 7.5 fl (7.4-10.4); Monocytes # 0.3 K/mm3 (0.1-1.0); Monocytes % 4.9 % (1.7-9.3); Neutrophils # 3.7 K/mm3 (1.8-7.8); Neutrophils % 52.8 % (37.0-80.0); Platelet Count 280 K/mm3 (142-424); Red Blood Count 5.18 M/mm3 (4.20-5.40); Red Cell Distribution Width 14.3 % (11.5-17.5)
--- NOTE | 2023-09-05 18:37 | PC.NURSE ---
pt at ct scan
[2023-09-05] MEDS: IOPAMIDOL-370 (76%);100ML BOTTLE 75 ML IV (18:43)
[2023-09-05] MEDS: SODIUM CHLORIDE 0.9% 10ML SYR (RAD ONLY) 10 ML IV (18:43)
--- NOTE | 2023-09-05 18:51 | PC.NURSE ---
Addendum entered by Cris Hill, DENA 09/05/23 18:55: paged Original Note: Paged per
--- NOTE | 2023-09-05 18:54 | PC.NURSE ---
Per call surgery team to do a scope on pt at 19:30
[2023-09-05 19:23] VITALS: BP 124/95; PULSE 79; RESP 16; TEMP 36.7; O2SAT 95
--- NOTE | 2023-09-05 19:23 | PC.NURSE ---
surgery nurse at bedside,
--- NOTE | 2023-09-05 19:32 | EXP.GEN.HP ---
HPI HPI HPI: Patient is a 23-year-old female with history of dysphagia for quite some time. She had previous endoscopy when she was in high school. She has had symptoms recently of dysphagia which has been self-limited. However, today, on 09/05/2023 she was eating a hot dog approximately 2:30 PM. She had symptoms of inability to swallow her secretions. She presented to the emergency department. Clinically consistent history with esophageal food impaction. She did have a CT scan which confirmed this. Surgical consultation was obtained. [facility] Disclaimer: The information contained in this section may have been updated after the patient was seen, as this information can be updated by other users. Surgical History No history of previous surgery Family History Other No significant family history Social History Smoking Status: Current every day smoker alcohol intake: never substance use type: denies use current occupational status: employed Travel in the last 8 weeks: None Meds Home Medications and Allergies Home Medications Medication Instructions Recorded Confirmed Type vit no.95-ferrous 1 tab PO DAILY Supplement 11/17/22 12/01/22 History fumarate 28 mg-folic acid 800 mcg tablet () New Prescriptions to Start Prescriptions: Allergies Allergy/AdvReac Type Severity Reaction Status Date / Time No Known Allergies Allergy Verified 12/01/22 09:43 Exam Data for Last 24 hours Vital signs and Labs for Last 24 Hours: Temp Pulse Resp BP Pulse Ox O2 Del Method 98.0 F 79 16 124/95 H 97 Room Air 09/05/23 19:23 09/05/23 19:23 09/05/23 19:23 09/05/23 19:23 09/05/23 18:31 09/05/23 19:23 Laboratory Results - last 24 hr 09/05/23 18:06: WBC 7.0, RBC 5.18, Hgb 15.1, Hct 47.0, MCV 90.7, MCH 29.2, MCHC 32.2, RDW 14.3, Plt Count 280, MPV 7.5, Neut % (Auto) 52.8, Lymph % (Auto) 36.8, [place] % (Auto) 4.9, Eos % (Auto) 3.2, Baso % (Auto) 2.4 H, Neut # (Auto) 3.7, Lymph # (Auto) 2.6, [place] # (Auto) 0.3, Eos # (Auto) 0.2, Baso # (Auto) 0.2, Sodium 143, Potassium 3.6, Chloride 107, Carbon Dioxide 28, Anion Gap 11.6, BUN 10, Creatinine 0.90, Estimated Creat Clear 147, Estimated GFR 78, Est GFR ( Amer) 95, Glucose 105 H, Calcium 10.0, Serum HCG, Qual Negative I & O for Last 24 hours: Intake & Output 09/03/23 09/04/23 09/05/23 09/06/23 11:59 11:59 11:59 11:59 Weight 210 lb Constitutional Constitutional: no acute distress *Routine HEENT Exam Head: Present normocephalic Eye: Present EOMI and PERRL ENT: Present mucous membranes moist *Routine Neck Exam Neck: Present supple; Absent lymphadenopathy *Routine Respiratory Exam Respiratory: Present CTA bilaterally *Routine Cardiovascular Exam Cardiovascular: Present RRR *Routine Abdominal Exam Abdominal: Present soft and normoactive bowel sounds; Absent tenderness *Routine Rectal Exam Rectal:: deferred *Routine Genitalia Exam Genitalia:: deferred *Routine Extremities Exam Extremities: Absent cyanosis, clubbing or edema *Routine Skin Exam Skin: Present warm; Absent rash *Routine Neurological Exam Neurological: Present alert and oriented X3 Results Results Lab Results Last 24 Hours:: Laboratory Results - last 24 hr 09/05/23 18:06: WBC 7.0, RBC 5.18, Hgb 15.1, Hct 47.0, MCV 90.7, MCH 29.2, MCHC 32.2, RDW 14.3, Plt Count 280, MPV 7.5, Neut % (Auto) 52.8, Lymph % (Auto) 36.8, [place] % (Auto) 4.9, Eos % (Auto) 3.2, Baso % (Auto) 2.4 H, Neut # (Auto) 3.7, Lymph # (Auto) 2.6, [place] # (Auto) 0.3, Eos # (Auto) 0.2, Baso # (Auto) 0.2, Sodium 143, Potassium 3.6, Chloride 107, Carbon Dioxide 28, Anion Gap 11.6, BUN 10, Creatinine 0.90, Estimated Creat Clear 147, Estimated GFR 78, Est GFR ( Amer) 95, Glucose 105 H, Calcium 10.0, Serum HCG, Qual Negative Assessment and Plan *Assessment and plan (1) Esophageal obstruction due to food impaction: Status: Acute Category: Medical Code(s): T18.128A - Food in esophagus causing other injury, initial encounter; W44.F3XA - Food entering into or through a natural orifice, initial encounter Plan Plan to proceed with endoscopy.
[2023-09-05 20:05] VITALS: BP 89/44; PULSE 83; RESP 16; TEMP 36.4; O2SAT 95
--- NOTE | 2023-09-05 20:06 | P.PCN_ITS ---
Procedure: Date: 09/05/23 Patient Date of :: 2000 Procedure Performed:: Esophagogastroduodenoscopy with retrieval of food impaction foreign body. Indications:: Patient is a 23-year-old female with history of dysphagia for quite some time. She had previous endoscopy when she was in high school. She has had symptoms recently of dysphagia which has been self-limited. Apparently she has had appointment with gastroenterology at [place] and was unable to keep this appointment due to work. However, today, on 09/05/2023 she was eating a hot dog approximately 2:30 PM. She had symptoms of inability to swallow her secretions. She presented to the emergency department. Clinically consistent history with esophageal food impaction. She did have a CT scan which confirmed this revealing 3.6 x 1.9 cm heterogeneous collection of material within the distal thoracic esophagus, with minimal surrounding esophageal wall thickening and mild gas and fluid dilation of the proximal thoracic esophagus. Findings most compatible with impacted food bolus, with mild esophageal edema and esophageal obstruction. No evidence of esophageal perforation.. Surgical consultation was obtained. Plan was made to proceed with emergent endoscopy. . Performing Provider:: Capo Lynn MD Referring Provider:: Dana Chan Sedation:: MAC sedation Procedure:: Patient history was obtained and appropriate physical examination was performed. Patient's medications and allergies were reviewed. Informed consent was obtained after explaining the benefits, alternatives, and risks of the procedure including, but not limited to, bleeding, perforation, missed lesions, and adverse reaction to anesthesia medications. Patient was transported to endoscopy procedure room. Patient was connected to monitoring devices. Throughout the procedure the patient's blood pressure, pulse, and oxygen saturations were monitored continuously. Patient identification and planned procedure were verified by the staff. Patient was positioned in lateral decubitus position. Olympus endoscope was inserted via the oropharynx and advanced into the esophagus. There were secretions present which were suctioned free. The distal esophagus there was obstruction secondary to food impaction. Initially attempt was made to retrieve the food bolus with the Keita net. This was inserted and a portion was retrieved as the endoscope was withdrawn. Remainder of food bolus was unable to be retrieved. Endoscope was withdrawn and the E suction device was attached. Endoscope was then reinserted and the remaining food bolus was extracted with the E suction device. It appeared as though this removed the obstruction. The E suction device was removed and the endoscope was reinserted. Esophagus was inspected. Gastroesophageal junction was encountered at approximately 36 cm from the incisors. Stomach was entered and insufflated. There was a significant amount of food matter present within the stomach. It was advanced to a short distance into the duodenum. Endoscope was then withdrawn. . Findings:: Esophageal obstruction secondary to food impaction at the GE junction Recommendations:: Recommend limited liquid diet for 24 hours then soft diet. Recommend eytv-nhu-vjfzkam omeprazole. Patient would likely benefit from follow-up with gastroenterology for elective endoscopy. Complications:: None immediately apparent Estimated blood obtained (mL): 1 Colonoscopy Component Colonoscopy Component Was a colonoscopy performed during today's procedure?: No
[2023-09-05 20:15] VITALS: BP 120/79; BP 90/58; PULSE 87; PULSE 94; RESP 17; RESP 18; O2SAT 96; O2SAT 99
--- NOTE | 2023-09-05 20:15 | P.PNANES_ITS ---
[facility] Disclaimer: The information contained in this section may have been updated after the patient was seen, as this information can be updated by other users. Surgical History No history of previous surgery Family History Other No significant family history Social History Smoking Status: Current every day smoker alcohol intake: never substance use type: denies use current occupational status: employed Travel in the last 8 weeks: None [facility] Anesthesia Checklist Patient Identification Patient Identification: Arm Band Structural Data Admitted From: Emergency Dept Planned Operative Procedure/s: EGD-Removal of Esophageal Food Bolus Consent for Planned Operative Procedure(s) Verified: Yes Verified Documents: Surgical Consent and History and Physical NPO Status Verified Time NPO: 14:30 (hot dog) Additional verifications Anesthesia Reactions: No Airway Assessment Mallampati Score:: Class II C-Spine Mobility Assessed: Yes TMJ Mobility Assessed: Yes Dentition: Good Dentition Neurological Assessment Level of Consciousness: Awake, Alert and Appropriate Anesthesia Plan Anesthesia Risk discussed: Yes Anesthesia Plan: Verified ASA Class: II (E) Anesthesia Type: MAC
[2023-09-05 20:25] VITALS: BP 104/61; PULSE 96; RESP 18; O2SAT 100
== END 2023-09-05 20:50 | disposition home or self-care (01) ==
LOC: ER 18:11 → SDC 19:23
PROVIDERS: Surgery; Emergency Provider Emergency Medicine; PCP Nurse Practitioner Family; Visit Provider Surgery
PROC: 0DJ08ZZ Inspection of Upper Intestinal Tract, Via Natural or Artificial Opening Endoscopic (ICD-10-PCS; CPT 43235; principal; 2023-09-05 19:30)
DX: R13.10 Dysphagia, unspecified (principal); T18.128A Food in esophagus causing other injury, initial encounter; W44.F3XA Food entering into or through a natural orifice, initial encounter
CPT/HCPCS: 43247; 71260; 80048; 84703; 85025; 99285; J2405; J2704; Q9967

== ENCOUNTER 2024-10-25 08:12 | Outpatient (CLI) | payer BC, MEDICAID, SELFPAY ==
[2024-10-25 09:16] LABS: HCG,Quantitative 645 mIU/ml (0-5.42)
[2024-10-26 13:44] LABS: Progesterone 8.7 ng/mL (.)
== END 2024-10-25 23:59 | disposition home or self-care (01) ==
PROVIDERS: PCP Nurse Practitioner Family; Visit Provider Nurse Practitioner Obstetrics & Gynecology
DX: Z32.01 Encounter for pregnancy test, result positive (principal)
CPT/HCPCS: 36415; 84144; 84702

== ENCOUNTER 2024-10-27 11:16 | Outpatient (CLI) | payer BC, MEDICAID, SELFPAY ==
[2024-10-27 12:45] LABS: HCG,Quantitative 1627 mIU/ml (0-5.42)
== END 2024-10-27 23:59 | disposition home or self-care (01) ==
LOC: LAB 11:16
PROVIDERS: PCP Nurse Practitioner Family; Visit Provider Obstetrics & Gynecology
DX: Z32.01 Encounter for pregnancy test, result positive (principal)
CPT/HCPCS: 36415; 84702

== ENCOUNTER 2024-11-15 09:57 | Outpatient (CLI) | payer BC, MEDICAID, SELFPAY ==
[2024-11-15 10:32] LABS: Basophils % 0.5 % (0.1-2.0); Eosinophils # 0.2 Kmm3 (0.0-0.4); Eosinophils % 3.3 % (0.1-12.0); Hematocrit 39.3 % (37.0-47.0); Hemoglobin 13.2 g/dL (12.2-16.2); Immature Granulocytes # 0.02 10^3uL; Immature Granulocytes % 0.3 %; Lymphocytes # 2.2 K/mm3 (0.7-4.5); Lymphocytes % 33.7 % (10-50); Mean Corpuscular HGB Conc 33.6 g/dL (31.8-35.4); Mean Corpuscular Volume 86.4 fl (81-99); Mean Platelet Volume 9.3 fl (7.4-10.4); Monocytes # 0.3 K/mm3 (0.1-1.0); Monocytes % 4.7 % (1.7-9.3); Neutrophils # 3.8 K/mm3 (1.8-7.8); Neutrophils % 57.5 % (37.0-80.0); Nucleated Red Blood Cells # 0 10^3/uL; Nucleated Red Blood Cells % 0 %; Platelet Count 243 K/mm3 (142-424); Red Blood Count 4.55 M/mm3 (4.20-5.40); Red Cell Distribution Width-SD 40.6 fL; White Blood Count 6.6 K/mm3 (4.8-10.8)
[2024-11-15 11:55] LABS: HIV Combo NEGATIVE (Negative)
[2024-11-15 12:04] LABS: Hepatitis C Ab Qual. W/ RFX NEGATIVE (Negative)
[2024-11-15 21:44] LABS: RPR W/RFX Titers Nonreactive (Nonreactive)
[2024-11-16 05:10] LABS: Hepatitis B Surface Antigen Negative (Negative)
[2024-11-16 06:11] LABS: Rubella Antibodies, IgG 1.45 index (Immune >0.99)
== END 2024-11-15 23:59 | disposition home or self-care (01) ==
LOC: LAB 09:58
PROVIDERS: PCP Nurse Practitioner Family; Visit Provider Obstetrics & Gynecology
DX: Z34.91 Encounter for supervision of normal pregnancy, unspecified, first trimester (principal); Z3A.00 Weeks of gestation of pregnancy not specified
CPT/HCPCS: 36415; 80074; 85025; 86592; 86762; 86850; 87340; 87389

== ENCOUNTER 2025-02-03 14:00 | Outpatient (CLI) | payer BC, MEDICAID, SELFPAY ==
--- NOTE | 2025-02-03 14:00 | US_ITS ---
PROCEDURE: US OB /MATERNAL DETAIL CLINICAL INDICATION: anatomy scan with cervical check COMPARISON: No exams were available for comparison FINDINGS: Transabdominal sonographic images of the pelvis were obtained. From her established due date she is 19 weeks 0 days. Single viable intrauterine gestation. Breech position. Placenta: Anteriorplacenta grade 1. Placenta is 6.3 cm away from the internal cervical os. Large sub amnionic placental Beckham is seen. There is an average amount of fluid. The cervix appears satisfactory. Closed and measuring 5.4 cm in length transvaginally. There is a mass in the posterior lower uterus that measures 6.0 cm x 4.4 cm. Possible fibroid or prolonged contraction. It was present throughout the examination. It was also seen transvaginally. Complete survey performed and was unremarkable on the submitted images as in PACS. No discrete anomalies identified on survey imaging by technologist. Active fetus. Three-vessel cord with satisfactory umbilical cord insertion. 4- chamber heart noted. Situs, aortic arch, LVOT, RVOT, three-vessel view appear normal. Survey of brain & ventricles Unremarkable. Cerebellum, thalamus, choroid plexus, cisterna magna appear normal. Face and neck survey unremarkable. Profile, nasion, lips and nose appeared normal. Diaphragm and chest views unremarkable. Abdomen: Both kidneys noted and unremarkable. Stomach and bladder noted and satisfactory. Spine: Survey of the spine satisfactory with no anomalies identified nor imaged. Cervical, thoracic, lower spine appear normal. Both arms and legs noted. Amniotic Fluid: Adequate. MVP 3.72 cm Measurements: Average ultrasound age 19weeks 2days. Estimated due date by ultrasound age 0206/28/2025. Estimated weight 268g BPD = 19weeks 3days HC = 19weeks 2days AC = 19weeks 0 days FL = 19weeks 1day Growth Percentile= 44 Heart Rate = 143bpm Cerebellum = 18weeks 5days Humerus = 19weeks 2days HC/AC is 1.23 FL/BPD is 0.66 FL/AC is 0.22 IMPRESSION: 1. Viable fetus in the breech presentation with an anterior placenta grade 1. There is a large placental Beckham within the sub amniotic area of the placenta. 2. The fluid is within normal limits with an MVP 3.72 cm. 3. Anatomical scan appears normal. 4. biometry is consistent with the dates. 5. There is a 6 cm x 4.4 cm mass in the lower uterine segment posteriorly that did not change throughout the examination. Suggest follow-up ultrasound at 28 weeks to look at this as well as the placental lakes. Dictated by: Kamaljit Barker MD 02/03/2025 18:37 Kamaljit Barker MD in [place] 02/03/2025 18:37
== END 2025-02-03 23:59 | disposition home or self-care (01) ==
LOC: RAD 14:00
PROVIDERS: PCP Nurse Practitioner Family; Visit Provider Obstetrics & Gynecology
DX: O28.3 Abnormal ultrasonic finding on antenatal screening of mother (principal); O32.1XX0 Maternal care for breech presentation, not applicable or unspecified; O10.912 Unspecified pre-existing hypertension complicating pregnancy, second trimester; O99.212 Obesity complicating pregnancy, second trimester; O47.00 False labor before 37 completed weeks of gestation, unspecified trimester; E66.9 Obesity, unspecified; Z36.2 Encounter for other antenatal screening follow-up; Z36.3 Encounter for antenatal screening for malformations; Z3A.19 19 weeks gestation of pregnancy
CPT/HCPCS: 76811; 76817

== ENCOUNTER 2025-04-07 14:29 | Outpatient (CLI) | payer BC, MEDICAID, SELFPAY ==
--- NOTE | 2025-04-07 14:30 | US_ITS ---
PROCEDURE: US OB FOLLOW UP CLINICAL INDICATION: 28 week follow up and growth COMPARISON: US US OB /MATERNAL DETAIL from 02/03/2025 FINDINGS: Transabdominal sonographic images of the pelvis were obtained. The following parameters are obtained: From her established due date she is 28weeks 0 days Viable fetus in the breech presentation with an anterior placenta grade 1. There continue to be multiple lakes along the inferior aspect of the placenta. The cervix measures 5.48 cm in length heart rate: 133bpm bpm. BPD: 27weeks 0 days, 11 percentile HC: 27weeks 3days, 8 percentile AC: 28weeks 1day, 43 percent FL: 27weeks 5days, 26 percentile HC/AC: 1.06 FL/BPD: 0.78 FL/AC: 0.22 Growth percentile: 29 Amniotic fluid: MVP 4.82 cm No obvious anomalies evident. Stomach, bladder, three-vessel cord, four chamber heart appear normal. IMPRESSION: 1. Viable fetus in the breech presentation with an anterior placenta grade 1. 2. There continue to be multiple placental lakes along the inferior aspect of the placenta. 3. The fluid is within normal limits with an MVP 4.82 cm. 4. The previously described 6 centimeter mass in the inferior aspect of the uterus is no longer present and I suspect it was a contraction. 5. There has been good interval growth with the fetus currently 29th percentile. 6. Very limited anatomical scan appears normal. Dictated by: Kamaljit Barker MD 04/07/2025 17:27 Kamaljit Barker MD in OV 04/07/2025 17:27
== END 2025-04-07 23:59 | disposition home or self-care (01) ==
LOC: RAD 14:29
PROVIDERS: PCP Nurse Practitioner Family; Visit Provider Obstetrics & Gynecology
DX: O10.913 Unspecified pre-existing hypertension complicating pregnancy, third trimester (principal); O99.213 Obesity complicating pregnancy, third trimester; Z3A.28 28 weeks gestation of pregnancy
CPT/HCPCS: 76816

== ENCOUNTER 2025-04-08 08:29 | Outpatient (CLI) | payer BC, MEDICAID, SELFPAY ==
--- OUTSIDE RECORDS SUMMARY | 2025-04-08 08:40 | XMS_ITS | Data Portability ---
Author Organization [facility] Address [address] [place] [address] Assessment Encounter Date Assessment Date Assessment LastModified by Organization Details LastModified Time 04/06/2023 04/06/2023 Continue prescribed medication as written. Call office with questions or concerns. f/u 3 months Not available 04/06/2023 16:52:23 05/22/2023 05/22/2023 Increase escitalopram to 20mg/day Will call with ultrasound results when available. Call office with questions or concerns. f/u 1 month [email or web address] Not available 06/01/2023 11:04:14 06/11/2023 06/11/2023 Patient presente d to office today for their Annual Wellness Visit. Education was provided on healthy nutrition, including a diet rich in fruits and vegetables, minimizing simple carbohydrates, salt, and saturated fats. Encouraged regular cardiovascular exercise such as walking at least 30 minutes daily, 5 times per week. Will call with lab results when available. f/u 1 year or sooner if needed Not available 06/11/2023 10:20:39 05/27/2024 05/27/2024 Will call with lab results when available. Call office with questions or concerns. f/u 1 month Not available 05/27/2024 09:07:41 10/11/2024 10/11/2024 Call office with questions or concerns. RTO for new or worsening symptoms. f/u 3 months for fasting labs [email or web address] Not available 10/11/2024 16:51:23 Plan of Treatment Reminders Order Date Submit Date Provider Last Modified By Organization Details Last Modified Time Details Appointments ER Follow UP 2024 04:00P M Dana Verdinie, LIFTER Not available Not available Not available Lab TSH + free T4, serum 2024 025 [facility], [address], [address], [place], [address], 05/28/2024 04:35:58 CMP, serum or plasma 2024 025 LE[facility], [address], [address], [place], [address], 05/28/2024 04:35:59 HbA1c (hemoglob in A1c), blood 2023 024 LEIGH [facility], [address], [address], [place], [address], 06/14/2023 07:36:34 CMP, serum or plasma 2023 024 [facility], [address], [address], [place], [address], 06/14/2023 07:36:32 TSH + free T4, serum 2023 024 LEIGH [facility], [address], [address], [place], [address], 06/14/2023 07:36:31 lipid panel, serum 2023 024 [facility], [address], [address], [place], [address], 06/14/2023 07:36:33 CT + NG RNA, PCR, unspecifi ed specimen 2023 024 LEIGH [facility], [address], [address], [place], [address], 06/14/2023 07:36:[address] referral 2022 023 LEIGH Clemons [facility], [address] [place] [address] Dr, [address], [place], [address], 07/08/2023 13:53:19 gastroent erologist referral 2022 023 [email or web address] [facility], [address], [address], [place], [address], 10/01/2023 09:58:39 Procedures None recorded. Surgeries None recorded. Imaging US, abdomen, complete 2022 023 [email or web address] [facility], [address] [place] [address] , [place], [address], 06/09/2023 09:53:14 Medication Orders naproxen 500 mg tablet 2024 025 [facility] [place], [address] [place] [address], [address], 10/25/2024 05:01:21 Zepbound 2.5 mg/0.5 mL subcutane ous pen injector 2024 025 [facility] - [address], [address], 10/11/2024 16:29:22 escitalop maria m 20 mg tablet 2022 024 [email or web address] [facility] - [address], [address], 05/27/2024 08:47:35 Lexapro 10 mg tablet 2022 023 [email or web address] [facility] - [address], [address], 06/11/2023 09:50:35 Patient TargetsNo targets recorded. Patient Instructions Encounter Date Encounter Id Patient Instructions Last Modified By Organization Details Last Modified Time 06/11/2023 [id number] learning about healthy weight [place] [id number] Not available 06/11/2023 10:14:52 body mass index: care instructions [email or web address] Not available 06/11/2023 10:14:52 walking for exercise: care instructions [email or web address] Not available 06/11/2023 09:54:38 heart-healthy diet: care instructions [email or web address] Not available 06/11/2023 09:54:38 05/27/2024 [id number] learning about healthy weight [email or web address] Not available 05/27/2024 09:05:25 body mass index: care instructions [email or web address] Not available 05/27/2024 09:05:25 Reason for Referral Divorce Mediator Referral for Feeling of lump in throat Referring Physician: Dana Ward, [facility], Encounter Date: 05/22/2023 Building Construction Supervisor Referral for Dec reased hearing Referring Physician: Dana Ward, [facility], Encounter Date: 05/22/2023 Results Created Date Observation Date Name Description Value Unit Range Abnormal Flag Note LastModifiedBy Organization Detail LastModifiedTime 06/11/19 24 06/12/2023 TSH+F REE T4 TSH 1.010 uIU/m L 0.450- 4.500 Not Available [facility] [address] [place], [address], 06/14/2023 07:36:31 06/11/19 24 06/12/2023 TSH+F REE T4 T4,free(dire ct) 1.19 NG/dL 0.82-1 .77 Not Available [facility] [address] [place], [address], 06/14/2023 07:36:31 06/11/19 24 06/12/2023 COMP. METAB OLIC PANEL (14) glucose 83 mg/dL 70-99 Not Available [facility] [address] [place], [address], 06/14/2023 07:36:32 06/11/19 24 06/12/2023 COMP. METAB OLIC PANEL (14) BUN 10 mg/dL 6-20 Not Available [facility] [address] [facility], [place], [address], 06/14/2023 07:36:32 06/11/19 24 06/12/2023 COMP. METAB OLIC PANEL (14) creatinine 0.79 mg/dL 0.57-1 .00 Not Available [facility] [address], [place], [address], 06/14/2023 07:36:32 06/11/19 24 06/12/2023 COMP. METAB OLIC PANEL (14) eGFR 108 mL/mi n/1.7 3 >59 Not Available [facility] [address] [place] [place], [address], 06/14/2023 07:36:32 06/11/19 24 06/12/2023 COMP. METAB OLIC PANEL (14) BUN/creatini ne ratio 13 9-23 Not Available [facility] [address] [facility], [place], [address], 06/14/2023 07:36:32 06/11/19 24 06/12/2023 COMP. METAB OLIC PANEL (14) sodium 143 mmol/ L 134-14 4 Not Available [facility] [address] [facility] [place], [address], 06/14/2023 07:36:32 06/11/19 24 06/12/2023 COMP. METAB OLIC PANEL (14) potassium 4.3 mmol/ L 3.5-5. 2 Not Available [facility] [address] [facility] [place], [address], 06/14/2023 07:36:32 06/11/19 24 06/12/2023 COMP. METAB OLIC PANEL (14) chloride 107 mmol/ L 96-106 above high normal Not Available [facility] [address] [facility] [place], [address], 06/14/2023 07:36:32 06/11/19 24 06/12/2023 COMP. METAB OLIC PANEL (14) carbon dioxide, total 21 mmol/ L 20-29 Not Available [facility] [address], [place], [address], 06/14/2023 07:36:32 06/11/19 24 06/12/2023 COMP. METAB OLIC PANEL (14) calcium 9.3 mg/dL 8.7-10 .2 Not Available [facility] [address], [place], [address], 06/14/2023 07:36:32 06/11/19 24 06/12/2023 COMP. METAB OLIC PANEL (14) protein, total 6.8 g/dL 6.0-8. 5 Not Available [facility] [address] [facility] [place], [address], 06/14/2023 07:36:32 06/11/19 24 06/12/2023 COMP. METAB OLIC PANEL (14) albumin 4.4 g/dL 4.0-5. 0 Not Available [facility] [address] [facility] [place], [address], 06/14/2023 07:36:32 06/11/19 24 06/12/2023 COMP. METAB OLIC PANEL (14) globulin, total 2.4 g/dL 1.5-4. 5 Not Available [facility] [address] [place], [address], 06/14/2023 07:36:32 06/11/19 24 06/12/2023 COMP. METAB OLIC PANEL (14) A/G ratio 1.8 1.2-2. 2 Not Available [facility] [address] [facility] [place], [address], 06/14/2023 07:36:32 06/11/19 24 06/12/2023 COMP. METAB OLIC PANEL (14) bilirubin, total 0.6 mg/dL 0.0-1. 2 Not Available [facility] [address] [facility] [place], [address], 06/14/2023 07:36:32 06/11/19 24 06/12/2023 COMP. METAB OLIC PANEL (14) alkaline phosphatase 82 IU/L 44-121 Not Available [facility] [address] [facility] [place], [address], 06/14/2023 07:36:32 06/11/19 24 06/12/2023 COMP. METAB OLIC PANEL (14) AST (SGOT) 22 IU/L 0-40 Not Available [facility] [address] [facility] [place], [address], 06/14/2023 07:36:32 06/11/19 24 06/12/2023 COMP. METAB OLIC PANEL (14) ALT (SGPT) 26 IU/L 0-32 Not Available [facility] [address] [facility] [place], [address], 06/14/2023 07:36:32 06/11/19 24 06/12/2023 LIPID PANEL cholesterol, total 170 mg/dL 100-19 9 Not Available [facility] [address] [facility] [place], [address], 06/14/2023 07:36:33 06/11/19 24 06/12/2023 LIPID PANEL triglyceride s 156 mg/dL 0-149 above high normal Not Available [facility] [address] [facility] [place], [address], 06/14/2023 07:36:33 06/11/19 24 06/12/2023 LIPID PANEL HDL cholesterol 41 mg/dL >39 Not Available [facility] [address] [facility], [place], [address], 06/14/2023 07:36:33 06/11/19 24 06/12/2023 LIPID PANEL VLDL cholesterol derrick 27 mg/dL 5-40 Not Available [facility] [address] [facility], [place], [address], 06/14/2023 07:36:33 06/11/19 24 06/12/2023 LIPID PANEL LDL chol calc ([facility]) 102 mg/dL 0-99 above high normal Not Available [facility] [address] [facility], [place], [address], 06/14/2023 07:36:33 06/11/19 24 06/12/2023 LIPID PANEL comment: BENCH WORKER HELPER Not Available [facility] [address] [facility], [place], [address], 06/14/2023 07:36:33 06/11/19 24 06/14/2023 CHLAM YDIA/ GC AMPLI FICAT ION chlamydia trachomatis, [place] Negati ve negati ve Not Available [facility] [address] [facility], [place], [address], 06/14/2023 07:36:34 06/11/19 24 06/14/2023 CHLAM YDIA/ GC AMPLI FICAT ION neisseria gonorrhoeae, [place] Negati ve negati ve Not Available [facility] [address] [place], [address], 06/14/2023 07:36:34 06/11/19 24 06/12/2023 HEMOG LOBIN A1C hemoglobin A1C 5.2 % 4.8-5. 6 Predi abete s: 5.7 - 6.4 Diabe nini: >6.4 Glyce man contr ol for adult s with diabe nini: <7.0 Not Available [facility] [address] [place], [address], 06/14/2023 07:36:34 05/27/19 25 05/28/2024 TSH+F REE T4 TSH 1.270 uIU/m L 0.450- 4.500 normal Not Available [facility] [address] [place], [address], 05/28/2024 04:35:58 05/27/1905/28/2024 TSH+F REE T4 T4,free(dire ct) 1.02 NG/dL 0.82-1 .77 normal Not Available [facility] [address] [place], [address], 05/28/2024 04:35:58 05/27/19 25 05/28/2024 COMP. METAB OLIC PANEL (14) glucose 92 mg/dL 70-99 normal Not Available [facility] [address] [place], [address], 05/28/2024 04:35:59 05/27/19 25 05/28/2024 COMP. METAB OLIC PANEL (14) BUN 10 mg/dL 6-20 normal Not Available [facility] [address] [place], [address], 05/28/2024 04:35:59 05/27/19 25 05/28/2024 COMP. METAB OLIC PANEL (14) creatinine 0.84 mg/dL 0.57-1 .00 normal Not Available [facility] [address] [place], [address], 05/28/2024 04:35:59 05/27/19 25 05/28/2024 COMP. METAB OLIC PANEL (14) eGFR 100 mL/mi n/1.7 3 >59 normal Not Available [facility] [address] [place], [address], 05/28/2024 04:35:59 05/27/19 25 05/28/2024 COMP. METAB OLIC PANEL (14) BUN/creatini ne ratio 12 9-23 normal Not Available [facility] [address] [facility] [place], [address], 05/28/2024 04:35:59 05/27/19 25 05/28/2024 COMP. METAB OLIC PANEL (14) sodium 139 mmol/ L 134-14 4 normal Not Available [facility] [address] [facility] [place], [address], 05/28/2024 04:35:59 05/27/19 25 05/28/2024 COMP. METAB OLIC PANEL (14) potassium 4.6 mmol/ L 3.5-5. 2 normal Not Available [facility] [address] [facility] [place], [address], 05/28/2024 04:35:59 05/27/19 25 05/28/2024 COMP. METAB OLIC PANEL (14) chloride 105 mmol/ L 96-106 normal Not Available [facility] [address] [facility] [place], [address], 05/28/2024 04:35:59 05/27/19 25 05/28/2024 COMP. METAB OLIC PANEL (14) carbon dioxide, total 23 mmol/ L 20-29 normal Not Available [facility] [address] [facility] [place], [address], 05/28/2024 04:35:59 05/27/19 25 05/28/2024 COMP. METAB OLIC PANEL (14) calcium 9.4 mg/dL 8.7-10 .2 normal Not Available [facility] [address] [place] [place], [address], 05/28/2024 04:35:59 05/27/19 25 05/28/2024 COMP. METAB OLIC PANEL (14) protein, total 6.4 g/dL 6.0-8. 5 normal Not Available [facility] [address] [place], [address], 05/28/2024 04:35:59 05/27/19 25 05/28/2024 COMP. METAB OLIC PANEL (14) albumin 4.1 g/dL 4.0-5. 0 normal Not Available [facility] [address] [place], [address], 05/28/2024 04:35:59 05/27/19 25 05/28/2024 COMP. METAB OLIC PANEL (14) globulin, total 2.3 g/dL 1.5-4. 5 Not Available [facility] [address] [place], [address], 05/28/2024 04:35:59 05/27/19 25 05/28/2024 COMP. METAB OLIC PANEL (14) bilirubin, total 0.5 mg/dL 0.0-1. 2 normal Not Available [facility] [address] [place] [place], [address], 05/28/2024 04:35:59 05/27/19 25 05/28/2024 COMP. METAB OLIC PANEL (14) alkaline phosphatase 75 IU/L 44-121 normal Not Available [facility] [address] [place] [place], [address], 05/28/2024 04:35:59 05/27/19 25 05/28/2024 COMP. METAB OLIC PANEL (14) AST (SGOT) 22 IU/L 0-40 normal Not Available [facility] [address] [place], [address], 05/28/2024 04:35:59 05/27/19 25 05/28/2024 COMP. METAB OLIC PANEL (14) ALT (SGPT) 30 IU/L 0-32 normal Not Available [facility] [address], [place], [address], 05/28/2024 04:35:59 06/05/19 24 US, abdom en, compl ete No observ ation record ed. [email or web address] [facility] [address] [facility] , [place], [address], 06/09/2023 10:16:15 02/04/20 25 02/03/2025 US, obste tric No observ ation record ed. [email or web address] [facility] [address], [place], [address], 02/13/2025 10:49:12 04/07/20 25 04/07/2025 imagi ng/di agnos tic resul t No observ ation record ed. [facility] [address], [place], [address], 04/07/2025 17:47:16 Result Notes None recorded. Problems Name Problem SNOMED Code Status Onset Date Resolution Date Notes Provider Name and Address Organization Details Recorded Time Exposure to SARS-CoV- 2 Completed 03/11/2021 Removal Reason: Problem added by user [email or web address] from the COVID-19 watch flag Felicity Woodward, LIFTER [address], [place], [address], [place] - [facility] 16:15:31 Childhood obesity 108834185 Active 2019 Felicity Woodward, LIFTER [address], [place], [address], [place] - [facility] 0 13:16:06 COVID-19 530887637 Active 2021 Albino Bertrand [facility], [place] - [facility] 2 10:40:04 Dizziness 992466758 Active 2022 Fredis Real PA-C [address], [place], [address], [place] - [facility] 3 10:50:16 Acute right otitis media 426080652 Completed 202210/11/2024 Dana Ward, LIFTER [address], [place], [address], [place] - [facility] 5 16:50:06 Feeling of lump in throat 219057243 Active 2022 Fredis Real PA-C [address], [place], [address], [place] [facility] 3 10:50:38 Anxiety 16588039 Active 2022 Dana Ward, LIFTER [address], [place], [address], [place] [facility] 3 09:26:27 Depressiv e disorder 12209797 Active 2022 Dana Ward APRN [address], [place], [address], [place] [facility] 3 09:26:28 Obesity 525249567 Active 2024 Dana Ward APRN [address], [place], [address], [place] - [facility] 5 09:05:17 Pain of right shoulder region Completed 202410/11/2024 Dana Ward APRN [address], [place], [address], [place] [facility] 5 16:50:11 Shoulder strain 502708481 Active 2024 Dana Ward APRN [address], [place], [address], [place] - [facility] 5 16:49:59 Neck pain 40639283 Active 2024 Dana Ward APRN [address], [place], [address], [place] - [facility] 5 16:54:49 Problem Notes None recorded. Procedures Surgical History Date Name Laterality Status Provider Name and Address Organization Details Recorded Time 12/19/19 23 Cerumen Removal completed Dana Ward APRN [address], [place], [address], [place] - [facility] 12/18/2022 19:44:26 12/13/19 IV Infusion completed Dana Ward, LIFTER [address], [place], [address], [facility] - [facility] 12/12/2022 16:32:28 Ear Tubes - Tympanostomy Tubes completed Catherinearianna Tran [place] - [facility] 11/14/2019 11:07:25 Imaging Results None recorded. Procedure Notes None recorded. Medical Equipment None Reported. Allergies No known drug allergies Medications Name Sig Start Date Stop Date Status Note LastModified by Organization Details LastModified Time amoxicill in 500 mg capsule Take 1 capsule twice a day by oral route for 10 days. 03/09 completed Not Available Not Available Not Available cetirizin e 10 mg tablet TAKE ONE (1) TABLET BY MOUTH ONCE A DAY NEEDED 05/27 completed Not Available Not Available Not Available Keflex 500 mg capsule take 1 capsule (500 mg) by oral route every 12 hours for 10 days 11/14 completed Keflex 500 mg oral capsule; Prescrib e Status: Prescrib ed on: 05/07/20 15 11:59AM; Disconti nued Status: Disconti nued on: 11/15/19 16 1:30PM;U ser: [email or web address];Est. Completi on: 05/17/20 15;Pharm [email or web address] ied: 05/07/20 15 11:59AM Not Available Not Available Not Available ondansetr on HCl 8 mg tablet TAKE ONE (1) TABLET EVERY 8 HOURS BY ORAL ROUTE NEEDED FOR THREE (3) DAYS. 05/27 completed Not Available Not Available Not Available metoclopr amide 5 mg tablet 12/22 completed Not Available Not Available Not Available erythromy carmel 5 mg/gram (0.5 %) eye ointment apply 1 cm ribbon into the lower conjunct ival sac(s) in the affected eye(s) by ophthalm ic route 2 times per day for 5 days 11/14 completed erythrom ycin 5 mg/gram (0.5 %) ophthalm ic ointment ;Prescri be Status: Prescrib ed on: 05/07/20 15 11:59AM; Disconti nued Status: Disconti nued on: 11/15/19 16 1:30PM;U ser: [email or web address];Est. Completi on: 05/12/20 15;Pharm [email or web address] ied: 05/07/20 11:59AM Not Available Not Available Not Available ferrous sulfate 325 mg (65 mg iron) tablet 12/22 completed Not Available Not Available Not Available progester one micronize d 200 mg capsule TAKE 1 CAPSULE BY MOUTH AT BEDTIME FOR 30 DAYS, OFF 7 DAYS, REPEAT CYCLE. active Not Available Not Available No t Available epinephri ne 0.3 mg/0.3 mL injection , auto-inje ctor INJECT ONE (1) PEN INJECTOR INTRAMUS CULARLY NEEDED INJECT INTO THE THIGH FOR SEVERE ALLERGIC REACTION . CALL 911 AFTER USE. MAY REPEAT IN 5-15 MINUTES. active Not Available Not Available No t Available fluticaso ne propionat e 50 mcg/actua tion nasal spray,mary carmen pension SPRAY ONE (1) TO TWO (2) SPRAY INTO BOTH NOSTRILS ONCE A DAY 05/27 completed Not Available Not Available Not Available naproxen 500 mg tablet Take 1 tablet twice a day by oral route for 7 days. 10/25 completed Not Available Not Available Not Available meclizine 25 mg chewable tablet TAKE ONE TABLET BY MOUTH EVERY 8 HOURS NEEDED 05/27 completed Not Available Not Available Not Available escitalop maria m 10 mg tablet TAKE ONE (1) TABLET EVERY DAY BY ORAL ROUTE FOR 90 DAYS. 06/11 completed Increase d Not Available Not Available Not Available escitalop maria m 20 mg tablet TAKE ONE (1) TABLET BY MOUTH EVERY DAY 05/27 completed Not Available Not Available Not Available nitrofura ntoin monohydra te/macroc rystals 100 mg capsule 12/12 completed Not Available Not Available Not Available Keflex 1 bid 05/07 completed keflex 500 mg;Recor ded Status: Recorded on: 05/07/20 11:31AM; Disconti nued Status: Disconti nued on: 05/07/20 15 11:53AM; User: [email or web address];Est. Completi on: 05/14/20 15;Indic ation: - (-5) Not Available Not Available Not Available sodium fluoride 1.1 %-potassi um nitrate 5 % dental paste USE A PEA SIZED AMOUNT IN PLACE OF REGULAR TOOTHPAS TE EVERY NIGHT AND MORNING. AT NIGHT, SPIT BUT TRY NOT TO RINSE OUT AND INSTEAD LEAVE ON TEETH FOR MAXIMUM EFFECT 05/27 completed Not Available Not Available Not Available 28 mg iron-800 mcg tablet 12/22 completed Not Available Not Available Not Available Isibloom 0.15 mg-0.03 mg tablet 11/13 completed Not Available Not Available Not Available Zepbound 2.5 mg/0.5 mL subcutane ous pen injector Inject 2.5 mg every week by subcutan eous route. 10/11 completed Not Available Not Available Not Available Vitals Date Recorded Body height Body mass index (BMI) Body weight Body temperature Heart rate Oxygen saturation Oxygen saturation in Arterial blood by Pulse oximetry Respiratory rate Pain severity - 0-10 verbal numeric rating [Score] - Reported Systolic And Diastolic Provider Name and Address Organization Details Last Updated DateTime 5 161.29 cm 38.4 kg/m2 05358.0 2 g 97.3 [degF] 83 /min 97 % 97 % 18 /min 0 110/64 mm[Hg] Celeste Luo [facility] 5 08:46:06 Date Recorded Body height Body mass index (BMI) Body weight Body temperature Heart rate Oxygen saturation Oxygen saturation in Arterial blood by Pulse oximetry Respiratory rate Pain severity - 0-10 verbal numeric rating [Score] - Reported Systolic And Diastolic Provider Name and Address Organization Details Last Updated DateTime 4 161.29 cm 36.5 kg/m2 54255.6 1 g 98 [degF] 93 /min 98 % 98 % 18 /min 0 120/78 mm[Hg] [facility] 4 09:50:00 Date Recorded Body height Body mass index (BMI) Body weight Body temperature Heart rate Oxygen saturation Oxygen saturation in Arterial blood by Pulse oximetry Respiratory rate Pain severity - 0-10 verbal numeric rating [Score] - Reported Systolic And Diastolic Provider Name and Address Organization Details Last Updated DateTime 5 161.29 cm 37.9 kg/m2 56015.3 4 g 98 [degF] 83 /min 98 % 98 % 18 /min 5 122/82 mm[Hg] Celeste ALEX - [facility] 5 16:13:13 Date Recorded Body height Body mass index (BMI) Body weight Body temperature Heart rate Oxygen saturation Oxygen saturation in Arterial blood by Pulse oximetry Respiratory rate Pain severity - 0-10 verbal numeric rating [Score] - Reported Systolic And Diastolic Provider Name and Address Organization Details Last Updated DateTime 3 161.29 cm 35.8 kg/m2 56358.8 4 g 98.6 [degF] 68 /min 98 % 98 % 18 /min 0 120/74 mm[Hg] Cel[facility] Luo [facility] 3 16:21:15 Date Recorded Body height Body mass index (BMI) Body weight Body temperature Heart rate Oxygen saturation Oxygen saturation in Arterial blood by Pulse oximetry Systolic And Diastolic Provider Name and Address Organization Details Last Updated DateTime 3 161.29 cm 36.2 kg/m2 16107.4 2 g 97.9 [degF] 82 /min 97 % 97 % 122/78 mm[Hg] Celeste ALEX [facility] 3 08:09:41 Social History Question Answer Notes LastModified by Organizat ion Details LastModified Time Tobacco Smoking Status Never Smoker Gill Sosa placido [facility] 03/10/2016 15:19:44 Do You Have An Advance Directive? No [email or web address] Information not available 11/14/2019 Are You Blind Or Do You Have Difficulty Seeing? No [email or web address] Information not available 11/14/2019 Is Blood Transfusion Acceptable In An Emergency? Yes Information not available 11/14/2019 What Is Your Level Of Caffeine Consumption? Occasional Information not available 03/10/2016 How Much Tobacco Do You Chew? None [email or web address] Information not available 11/14/2019 Are You Deaf Or Do You Have Serious Difficulty Hearing? No [email or web address] Information not available 11/14/2019 What Type Of Diet Are You Following? REGULAR [email or web address] Information not available 03/10/2016 Which Illicit Or Recreational Drugs Have You Used? Declines Information not available 11/14/2019 What Is The Highest Grade Or Level Of School You Have Completed Or The Highest Degree You Have Received? [id number] [email or web address] Information not available 11/14/2019 How Many Days Of Moderate To Strenuous Exercise, Like A Brisk Walk, Did You Do In The Last 7 Days? 0 [email or web address] Information not available 11/14/2019 On Those Days That You Engage In Moderate To Strenuous Exercise, How Many Minutes, On Average, Do You Exercise? 0 [email or web address] Information not available 11/14/2019 How Hard Is It For You To Pay For The Very Basics Like Food, Housing, Medical Care, And Heating? [id number] [email or web address] Information not available 11/14/2019 What Is The Fluoride Status Of Your Home? Fluoridated [email or web address] Information not available 12/23/2019 What Is Your Home Situation? Both Parents Information not available 03/10/2016 Live Alone Or With Others? With Others [email or web address] Information not available 11/14/2019 Last Menstrual Period? 11/10/2019 [email or web address] Information not available 11/14/2019 What Was The Date Of Your Most Recent Tobacco Screening? 10/11/2024 Information not available 10/11/2024 How Many Children Do You Have? 1 [email or web address] Information not available 11/14/2019 What Is Your Parents' Marital Status? [email or web address] Information not available 03/10/2016 Performs Monthly Self-breast Exam? Yes [email or web address] Information no t available 11/14/2019 Do You Use Protection During Sex? No [email or web address] Information not available 11/14/2019 What Is Your Relationship Status? Information not available 05/27/2024 Do You Use Your Seat Belt Or Car Seat Routinely? Yes Information not available 12/23/2019 Seat Belts Used Routinely Yes [email or web address] Information not available 11/14/2019 Are You Sexually Active? Yes [email or web address] Information not available 11/14/2019 How Much Tobacco Do You Smoke? No [email or web address] Information not available 11/14/2019 General Stress Level Low [email or web address] Information not available 11/14/2019 Do You Use Sunscreen Routinely? No [email or web address] Information not available 11/14/2019 Do You Have Difficulty Walking Or Climbing Stairs? No [email or web address] Information not available 11/14/2019 Sex: Female Functional Status Question Answer Note LastModified by [employer] Details LastModified Time What is your level of alcohol consumption? None [email or web address] Information not available 11/14/2019 Do you or have you ever used smokeless tobacco? Never used smokeless tobacco Information not available 11/14/2019 Are you currently employed? Yes Information not available 11/14/2019 Are you able to walk independently without assistance or assistive devices? YESWOREST [email or web address] Information not available 11/14/2019 Do you have difficulty doing errands alone? No [email or web address] Information not available 11/14/2019 Do you have difficulty dressing, bathing, grooming, or toileting? No Information not available 11/14/2019 Do you or have you ever used e-cigarettes or vape? Never used electronic cigarettes [email or web address] Information not available 11/14/2019 What is your exercise level? Moderate [email or web address] Information not available 03/10/2016 Mental Status Question Answer Note LastModified by [employer] Details LastModified Time Do you feel stressed (tense, restless, nervous, or anxious, or unable to sleep at night)? [id number] [email or web address] Information not available 11/14/2019 Do you have difficulty concentrating, remembering or making decisions? No [email or web address] Information no t available 11/14/2019 Family History Relationship Description Onset Age of this Age Resolved Age Notes LastModified by Organization Details LastModified Time Father No current problems or disability [email or web address] Not available 11/13 11:05:25 Mother No current problems or disability [email or web address] Not available 11/13 11:05:25 Medical History Condition Response Pancreatitis N Other N Atrial Fibrillation N congenital heart disease N Blood Diseases N Hyperthyroidism N Rheumatoid arthritis N Blood Transfusion N Erectile Dysfunction N amputation N Skin Lesions N Depression N Pneumonia N Incontinence N Murmur N Edema N Alzheimer's Disease N Migraine Headaches N Tobacco Abuse N Anxiety Disorder N Hemorrhoids N Obesity N Vision or Eye Problems N Arthritis N Restless Leg Syndrome N Polyps N Infertility N Carpal Tunnel N Acid Reflux (GERD) N Cancer N Varicosities N Stroke N Tendonitis N Crohn's Disease N Hypercholesterolemia N Skin Cancer N Headaches N Fibromyalgia N Irritable Bowel Syndrome N Anal Fissure N Kidney Disease N Heart Problems N Hospitalizations N Gallstones N Kidney or Bladder Problems N Goiter N Acne N Eating Disorder N Del Valle's Esophagus N Hypertriglyceridemia N Constipation N Embolism N Vitamin B12 Deficiency N Deviated Septum N AIDS/HIV N Myocardial Infarction N Asthma N Mitral Valve Disorders N Vertigo N Hepatitis N Thyroid Cancer N Neuropathy N History of DVT N Herniated Disc N Chicken Pox N Von Willebrands Disease N Thrombophilias N Breast Cancer N Hernia N Plantar Fasciitis N Hypothyroidism N Lung Disease N Defects or Inherited Disease N Breast Problem N Ovarian Cyst N Anesthesia Complications N Testosterone Deficiency N Interstitial Cystitis N Congenital Anomalies N Hypoglycemia N Blood clot N Vitamin D Deficiency N Cellulitis N Endometriosis N Bladder or Kidney Problems N Fracture N Panic Disorder N Schizophrenia N Concussion N Spina Bifida N Osteoarthritis N Parkinson's Disease N Disc Protrusion N STI N Esophagitis N Angina N Thyroid Problems N GI Problems N ADD/ADHD N Anemia N Multiple Sclerosis N Abnormal PAP N Lumbago N Mental Illness N Psychiatric Illness N Diabetes N Ovarian Cancer N Degenerative Disc Disease N Seizures/Epilepsy N Hyperlipidemia N Syncope N Insomnia N Eczema N Abuse/Domestic Violence N Attention Deficient Disorder N Dementia N Ulcerative colitis N Cerebrovascular Disease N Depression N Guillain-Denver N Sleep Apnea N Aneurysm N Bronchitis N Heart Disease N Hypertension N Pre-Eclampsia N Suicidal Ideation N Osteoporosis N Gynecological History Statement/Question Response Flow Moderate Frequency of Cycle (Q days) 30 Date of LMP 09/18/2024 Sexually Active? Y On BCP's at Conception? N Menses Monthly Y STIs/STDs N Duration of Flow (days) 7 Sexual Problems? N Current Control Method None LMP Approximate Hormone Replacement Therapy N Obstetrics History GPAL:G 2 P 1 0 0 1 Type Value Full Term 1 Living 1 Total 2 Immunizations Vaccine Type Date Status Note Provider Nam e and Address Organization Details Recorded Time COVID-19, mRNA, LNP-S, PF, 30 mcg/0.3 mL dose 1 completed Gayla Aguiar null, [place] - [facility] 01/08/2023 10:17:32 Hib, unspecified formulation 2 completed Gayla Ag[place] - [facility] 01/08/2023 10:17:32 Hib, unspecified formulation 2 completed Gayla [place] [facility] 01/08/2023 10:17:32 Hib, unspecified formulation 2 completed Gayla [place] [facility] 01/08/2023 10:17:32 Hib, unspecified formulation 2 completed Gayla Ag[place] [facility] 01/08/2023 10:17:32 meningococcal ACWY, unspecified formulation 3 completed Gayla [place] [facility] 01/08/2023 10:17:32 MMR 7 completed Gayla [place] [facility] 01/08/2023 10:17:32 MMR 3 completed Gayla Ag[place] [facility] 01/08/2023 10:17:32 COVID-19, mRNA, LNP-S, PF, 30 mcg/0.3 mL dose 1 completed Gayla [place] [facility] 01/08/2023 10:17:32 Tdap 3 completed Gayla [place] [facility] 01/08/2023 10:17:32 varicella 3 completed Gay[place] [facility] 01/08/2023 10:17:32 varicella 7 completed Gay[place] [facility] 01/08/2023 10:17:32 Hep B, unspecified formulation 2 completed Gayla [place] [facility] 01/08/2023 10:17:32 Hep B, unspecified formulation 2 completed Gayla [place] [facility] 01/08/2023 10:17:32 Hep B, unspecified formulation 1 completed Gay[place] [facility] 01/08/2023 10:17:32 polio, unspecified formulation 2 completed Gay[place] [facility] 01/08/2023 10:17:32 polio, unspecified formulation 2 completed Gay[place] [facility] 01/08/2023 10:17:32 polio, unspecified formulation 2 completed Gay[place] [facility] 01/08/2023 10:17:32 polio, unspecified formulation 7 completed Gay[place] [facility] 01/08/2023 10:17:32 Hep A, ped/adol, 2 dose 8 completed Gay[place] [facility] 01/08/2023 10:17:32 Hep A, ped/adol, 2 dose 8 completed Gay[place] [facility] 01/08/2023 10:17:32 DTaP, unspecified formulation 2 completed Gay[place] [facility] 01/08/2023 10:17:32 DTaP, unspecified formulation 2 completed Gay[place] [facility] 01/08/2023 10:17:32 DTaP, unspecified formulation 2 completed Gayla Aguiar null, [place] - [facility] 01/08/2023 10:17:32 DTaP, unspecified formulation 7 completed Gay[place] [facility] 01/08/2023 10:17:32 DTaP, unspecified formulation 3 completed Gayla Aguiar null, [place] - [facility] 01/08/2023 10:17:32 Past Encounters Encounter ID Performer Location Encounter Start Date Encounter Closed Date Diagnosis/Indication Diagnosis SNOMED-CT Code Diagnosis ICD10 Code Diagnosis IMO Codes Diagnosis Note [id number] Felicity Woodward [place] [address] [place] [address] [address] 03/10/2016 14:44:04 03/11/2016 08:13:15 History and physical examination, sports participation 899343778 Z02.5 [id number] REYNA Handley [employer] OPERATOR [address] [facility] [place] [address] 11/14/2019 10:57:20 11/14/2019 11:30:33 Painless rectal bleeding 531450054 K62.5 [id number] Felicity Woodward [place] [address] [address] 12/23/2019 09:21:48 12/23/2019 10:38:55 Pharyngitis 386725233 J02.9 Streptococ derrick tonsillitis 15185191 J03.00 Childhood obesity 741331 003 Z68.54 [id number] Felicity Woodward[address] [place] [address] 07/18/2020 09:59:52 07/18/2020 11:45:06 Pain of left wrist 1113220254 18923 M25.532 Closed fra cture of left wrist [id number] 1828180 S62.92XA [id number] Felicity Woodward[address] [place] [address] 03/11/2021 10:59:12 03/11/2021 13:11:25 Viral screening 951392413 Z11.52 [id number] Dana Ward [address] [place] [address] 06/20/2021 10:21:26 06/20/2021 11:00:55 Cough 69043046 R05.9 Acute uppe r respiratory infection 87683384 J06.9 [id number] Albino Bertrand [address] [place] [address] 06/24/2021 09:53:49 06/24/2021 10:53:45 Viral screening 409340927 Z11.52 Viral syndrome 610601080 B34.9 COVID-19 019896404 U07.1 [id number] Dana Ward [address] [place] [address] 10/07/2021 16:06:03 10/07/2021 16:43:08 Pain of right knee joint 4175923354 45895 M25.603 [id number] Lopez Jacob MD [address] [place] [address] 04/10/2022 15:20:55 04/10/2022 15:46:13 Fever 454487023 R50.9 sx seem mostly resolved; Pt elects for conservati ve tx with OTC products at this time [id number] Dana Ward [place] [address] [place] [address] 12/12/2022 12:57:09 12/12/2022 14:44:46 Viral screening 653374154 Z11.59 Nausea and vomiting 1693 1999 R11.2 Advised patient to drink clear fluids only, particular ly Gatorade (1-2 oz at a time, taken every 10-15 min if able) and rest. May consider clear broth as tolerated. Also consider a BRAT diet: bananas, rice, applesauce , toast, in moderation . Body mass index 30+ - obesity 186166356 Z68.32 Obesity 131677208 E66.9 Dizziness 872706462 R42 Patient notes some improvemen t in symptoms post IV infusion.A dvise patient to increase fluid intake.Adv ised patient do not drive while dizzyEduca miguelina patient on signs/symp toms that indicate need for immediate evaluation in the ED. Patient verbalized understand ing.RTO in 2-3 days if symptoms have not improved. [id number] Dana Ward Replaced by [facility] [address] [place], [place] [address] [place] [address] 12/18/2022 16:16:01 12/18/2022 17:12:53 Dizziness 844223772 R42 Advise patient to increase fluid intake.Adv ised patient do not drive while dizzyEduca miguelina patient on signs/symp toms that indicate need for immediate evaluation in the ED. Patient verbalized understand ing. Impacted c erumen of bilateral ears 8635412504 451623 H61.23 Advised patient to discontinu e use of cotton swabs for ear wax removal. [id number] Dana Ward Replaced by [facility] [address] [place], [place] [address] [place] [address] 12/30/2022 16:45:59 12/30/2022 17:29:54 Acute right otitis media 111747420 H66.91 Patient presents with signs/symp toms of otitis media. Will treat as below. Supportive care reviewed: humidifier use, raise HOB, saline nasal spray, encourage PO fluids. Recommende d acetaminop hen/ibupro fen PRN pain RTO in 7 days if symptoms have not improved. Or sooner if symptoms worsen. Feeling of lump in throat 150851006 F45.8 Advised patient that GI referral may be needed to further evaluate the sensation of food becoming stuck in her throat. Patient verbalized understand ing. States she would like to begin with light industrial referral before being referred to GI. Educated on signs/symp toms that indicate need for immediate evaluation in the ED. [id number] Fredis Real PA-C [address] [address] 01/08/2023 10:10:00 01/08/2023 10:57:21 Dizziness 671865384 R42 Ensure adequate hydration, take ABX for otitis media, return for worsening or concerning symptoms. Acute righ t otitis media 500938872 H66.91 Discussed supportive care with patient. take ABX as previously prescribed . Discussed expected course and cautioned signs and sxs to seek further treatment. [id number] Dana Ward [address] [place] [address] 03/09/2023 16:24:53 03/09/2023 17:06:07 Anxiety 93191120 F41.9 BAILEY-7 score of 15 Depressive disorder 3548 9007 F32.A PHQ-9 score of 19 [id number] Dana Ward [address] [place] [address] 04/06/2023 16:14:52 04/06/2023 17:04:24 Anxiety 93786961 F41.9 BAILEY-7 score of 3 Depressive disorder 3548 9007 F32.A PHQ-9 score of 2 [id number] Dana Ward [address] [place] [address] 05/22/2023 08:04:34 05/22/2023 08:37:09 Feeling of lump in throat 042520962 F45.8 Depressive disorder 3548 9007 F32.A PHQ-9 score of 2 Anxiety 14551482 F41.9 BAILEY-7 score of 3 Abdominal pain 69064889 R10.9 Decreased hearing 015400 001 H91.92 [id number] Dana Ward [address] [place] [address] 06/11/2023 09:39:43 06/11/2023 10:22:34 General examination of patient 539498751 Z00.00 Screening for cardiovascular system disease 120431870 Z13.6 Endocrine/ metabolic screening 998650407 Z13.228 Exercises education, guidance, and counseling 426969935 Z71.82 The patient was advised to continue a healthy diet and exercise regularly. Dietary ma nagement surveillance 536092413 Z71.3 Venereal d isease screening 873671473 Z11.3 Body mass index 30+ - obesity 821920095 Z68.36 Obesity 377445895 E66.9 [id number] Dana Sylvia [address] [place] [address] 05/27/2024 08:39:48 05/27/2024 09:28:05 Body mass index 30+ - obesity 726023275 Z68.38 Begin prescribed medication as written. Discussed potential side effects. Patient denies personal or family history of medullary thyroid carcinoma (MTC) and multiple endocrine neoplasia syndrome type 2. Obesity 896975448 E66.9 Endocrine/ metabolic screening 728313652 Z13.109 [id number] Dana Sylvia[address] [place] [address] 10/11/2024 15:52:24 10/11/2024 16:49:40 Shoulder strain 684933428 S46.911A [id number] Patient advised to take medication as directed here. No need for imaging at this time. Patient advised to rest initially and then slowly increase activity level. Recommende d supportive care including heat, rest, and stretching exercises. Neck pain 93539227 M54.2 [id number] Health Concerns Section Related Observation LastModified by Organization Detai ls LastModified Time None Recorded Concern Status LastModified by Organization Details LastModified Time None Recorded Advance Directives Directive N: Payers Insurance Date Sequence Insurance Name Policy Number Policy Echevarria Covered Member ID Echevarria Member ID Guarantor Name 05/27/2024 1 [facility] (MEDICAID HMO) Sanjana Marcellus [id number] Sanjana Marcellus 12/24/2022 1 *SELF PAY* De lla Marcellus 04/08/2025 2 PASSPORT BY [facility] (MEDICAID REPLACEMENT - HMO) Sanjana Marcellus [id number] Sanjana Marcellus 05/27/2024 [place] [facility] [id number] Sanjana R Marcellus [id number] Sanjana Marcellus 03/11/2021 1 [place] [employer] [place] [id number] Sanjana R Bowling [id number] Sanjana Marcellus 11/14/2019 1 *SELF PAY* De lla Marcellus 04/08/2025 [place] Sanjana R Marcellus [id number] Sanjana Marcellus 12/12/2022 1 [facility] (MEDICAID HMO) Sanjana Bowling [id number] Sanjana Marcellus 12/08/2024 1 [place] [id number] Sanjana R Marcellus [id number] Sanjana Marcellus Notes Date Note Type Note Provider Name and Address Organization Details Recorded Time 04/06/2023 text/html ROS as noted in the HPI Patient presents to f/u on anxiety and depression. Compliant with medication. Patient reports anxiety and depression symptoms have improved since beginning escitalopram. Patient reports she is also attending therapy with benefit. Denies SI/HI, chest pain, SoB, fever, and n/v/d. Dana Ward, LIFTER [address], [place], [address], [place] - [facility] 04/06/2023 16:52:26 05/22/2023 text/html ROS as noted in the HPI Patient presents with c/o decreased hearing in left ear x a while . Patient reports family history of hearing problems . Denies ear pain and ear discharge. Patient with continued c/o feeling of lump in throat. Patient reports she feels as if food is getting stuck in her throat x 1 month. Patient reports she has to make herself throw up to get the food out. Patient reports episodes occur half the time that I eat . Denies sore throat, SoB, fever, and chest pain. Patient presents with c/o irritability, increased anxiety, and mood swings x 2 weeks. Reports irritability occurs daily. Denies sleep disturbances, SI/HI, and depression. Reports sharp pain in abdomen x 2 months. Patient reports the pain began during her last and she was told it was a hernia. Patient states pain is worse when she needs to have a bowel movement. Denies hematemesis, hematochezia, fever, diarrhea, dysuria, and constipation. Dana WardREYNA [address], [place], [address], [facility] - [facility] 06/01/2023 11:04:39 06/11/2023 text/html Patient presents for annual wellness exam. Dana Ward LIFTER [address], [place], [address], [facility] - [facility] 06/11/2023 10:21:06 05/27/2024 text/html ROS as noted in the HPI Patient presents to discuss weight loss injections. Patient expressing concerns of difficulty loosing weight. Denies chest pain, SOA, fever, and n/v/d. Dana Ward APRN [address], [place], [address], [facility] - [facility] 05/27/2024 09:21:14 10/11/2024 text/html ROS as noted in the HPI Patient presents with c/o right shoulder pain x 5 days. Reports pain worsened after playing darts on her Wii 3 days ago.Reports pain is worse with coughing, sneezing, or taking a deep breathe. States pain intermittently radiates in right neck.Reports pain is 2/10 at best and 7/10 at worst.Denies known trauma.Denies chest pain, SOA, fever, abdominal pain, fever, and n/v/d. Dana Ward APRN [address], [place], [address], [facility] - [facility] 10/11/2024 16:55:13 OBGyn Episode Ob Episode Information Episode Created Date Number of Fetuses Patient Bloodtype Patient rh Status Prepregnancy Weight lbs Domestic Partner Domestic Partner Phone Father Name Chief Accountant Status 11/14/19 20 1 CLOSED Fetus Data First Name Last Name Admitted to NICU Weight (g) Sex Living Outcome Pediatric Complications Fetus ID Race Codes Race Delivery Type 3572.03 7 F Full Term [id number] Vaginal Pedrito Calculation Initial Pedrito Date Initial Exam Date Initial Exam Provider Initial Ultrasound Date Last Menstrual Period Date Ultra Sound Weeks Gestation 0 Eighteen To Twenty Week Pedrito Update Ultra Sound Date Fundal Height At Umbil Quickening Date Ultra Sound Latest Weeks Gestation Final Pedrito Confirmed By Final Pedrito Confirmed Date Final Pedrito Date Ultra Sound Latest Days Gestation 0 0 Menstrual History Last Menstrual Date Menses Monthly On Bcp Conception Prior Menses Frequency Hcg Plus Date Menarche Onset Age Delivery Information Delivery Date Delivery Type Labor Anesthesia Weeks Gestation Incision Type Labor Labor Length Hrs Delivered By Post Complications Tubal Sterilization Discharge Date Comments 9 [facility] idural 40 26 Discharge Information Feeding Method Contraceptive Method Maternal HG B and HCT Levels
[2025-04-08 09:57] LABS: Hematocrit 31.3 % (37.0-47.0); Hemoglobin 10.8 g/dL (12.2-16.2); Immature Granulocytes % 0.6 %; Mean Corpuscular HGB Conc 34.5 g/dL (31.8-35.4); Mean Corpuscular Hemoglobin 30.7 pg (27.0-31.2); Mean Corpuscular Volume 88.9 fl (81-99); Nucleated Red Blood Cells % 0 %; Platelet Count 187 K/mm3 (142-424); Red Blood Count 3.52 M/mm3 (4.20-5.40); Red Cell Distribution Width-SD 45.0 fL; White Blood Count 8.1 K/mm3 (4.8-10.8)
[2025-04-08 10:25] LABS: Glucose 1 Hour 147 mg/dL (74-100)
[2025-04-08 13:02] LABS: RPR W/RFX Titers Nonreactive (Nonreactive)
== END 2025-04-08 23:59 | disposition home or self-care (01) ==
LOC: LAB 08:31
PROVIDERS: PCP Nurse Practitioner Family; Visit Provider Obstetrics & Gynecology
DX: O10.919 Unspecified pre-existing hypertension complicating pregnancy, unspecified trimester (principal); O99.210 Obesity complicating pregnancy, unspecified trimester; E66.9 Obesity, unspecified; Z3A.00 Weeks of gestation of pregnancy not specified
CPT/HCPCS: 36415; 82947; 85025; 86592

== ENCOUNTER 2025-04-14 08:07 | Outpatient (CLI) | payer BC, MEDICAID, SELFPAY ==
--- OUTSIDE RECORDS SUMMARY | 2024-01-20 12:00 | XMS_ITS ---
Author Organization [facility] Address [address] [place] [address] Care Team Providers Care Instructional Design Specialist Name Role Phone NO, PCP Primary Care Provider Yarelis Casas, [id number] Loly Bullock [phone] REASON FOR VISIT Tuberculosis (TB) / PPD Test Social History Sex Assigned At : Social History Observation Description Sex Assigned At Female Encounters Encounter Location Date Provider Diagnosis [id number] [id number] 01/20/2024 Loly Casas Plan Of Treatment No Information Progress Notes * Sanjana GILLIMADOB:2000 (24 yo F)Acc No.[id number]:01/20/2024 Patient: Sanjana COYNE Provider: Marisa Casas APRN :2000 A ge:23 Y S ex:Female Date:01/20/2024 External Visit ID:[id number] Address:[address] [place], [place] [id number] Pcp:PCP NO Subjective: * Chief Complaints: * 1 . Tuberculosis (TB) / PPD Test. * Medical History: Objective: * Vitals: Assessment: Plan: * Treatment: * Billing Information: * Visit Code: * Procedure Codes: Care Plan Details* * Electronic signature of [id number] Loly Casas APRN on 04/14/2025 at 07:15 AM FIBRE COMPOSITE TECHNICIAN Sign off status: Pending * Provider: Marisa Casas APRN Date: 0 01/20/2024 Generated for Printi ng/Fasammg/eTransmitting on: 1 06/14/2024 07:15 AM FIBRE COMPOSITE TECHNICIAN
--- OUTSIDE RECORDS SUMMARY | 2025-04-14 08:15 | XMS_ITS | Patient Health Record ---
Author Organization [facility] Address [facility] [address] [place] [id number] Care Team Providers Care Senior Engineering Team Leader Name Role Phone NO, PCP Primary Care Provider Unavailabl e Allergies No Known Allergies Reason For Referral No Information Immunizations Vaccine Route Administration Date Status Comme nts PPD Aplisol SC Subcutaneous 01/08/2022 Administered PPD Aplisol SC Subcutaneous 01/14/2022 Administered PPD Aplisol SC Subcutaneous 01/28/2024 Administered Social History Sex Assigned At : Social History Observation Description Sex Assigned At Female Problems Problem Type SNOMED Code ICD Code Onset Dates Problem Status W/U Status Risk Notes Problem Elevated blood pressure (84747104) Elevated blood pressure (I10) Active confirmed Problem Obese class II (4127563638752 05) BMI 35.0-35.9,adul t (Z68.35) Active confirmed Problem Obesity (860355374) Obesity (BMI 30-39.9) (E66.9) Active confirmed Plan Of Treatment No Information Insurance Providers Payer Name Payer Address Payer Phone Subscriber Number Group Number Insured Name Patient Relationship to Insured Coverage Start Date Coverage End Date PROMPT PAY/Bill to Patient Sanjana Germain Self - patient is the insured
--- OUTSIDE RECORDS SUMMARY | 2025-04-14 08:16 | XMS_ITS | Data Portability ---
Author Organization [facility] Address [address] [place] [address] Assessment Encounter Date Assessment Date Assessment LastModified by Organization Details LastModified Time 04/06/2023 04/06/2023 Continue prescribed medication as written. Call office with questions or concerns. f/u 3 months [email or web address] Not available 04/06/2023 16:52:23 05/22/2023 05/22/2023 Increase escitalopram to 20mg/day Will call with ultrasound results when available. Call office with questions or concerns. f/u 1 month [email or web address] Not available 06/01/2023 11:04:14 06/11/2023 06/11/2023 Patient [...] f/u 1 year or sooner if needed [email or web address] Not available 06/11/2023 10:20:39 05/27/2024 05/27/2024 Will call with lab results when available. Call office with questions or concerns. f/u 1 month [email or web address] Not available 05/27/2024 09:07:41 10/11/2024 10/11/2024 Call office with questions or concerns. RTO for new or worsening symptoms. f/u 3 months for fasting labs [email or web address] Not available 10/11/2024 16:51:23 Plan of Treatment Reminders Order Date Submit Date Provider Last Modified By Organization Details Last Modified Time Details Appointments None recorded. Lab TSH + free T4, serum 2024 025 LEIGH [facility], [address], [address], [place], [address], 5 04:35:58 CMP, serum or plasma 2024 025 LEIGH [facility], [address], [address], [place], [address], 5 04:35:59 HbA1c (hemoglobin A1c), blood 2023 024 LEIGH [facility], [address], [address], [place], [address], 4 07:36:34 CMP, serum or plasma 2023 024 LEIGH [facility], [address], [address], [place], [address], 4 07:36:32 TSH + free T4, serum 2023 024 LEIGH [facility], [address], [address], [place], [address], 4 07:36:31 lipid panel, serum 2023 024 LEIGH [facility], [address], [address], [place], [address], 4 07:36:33 CT + NG RNA, PCR, unspecified specimen 2023 024 LEIGH [facility], [address], [address], [place], [address], 4 07:36:34 Referral piercing artist referral 2022 023 LEIGH [facility], [address] [place] [address] Dr, [address], [place], [address], 4 13:53:19 gastroenter ologist referral 2022 023 [email or web address] [facility], [address], [address], [place], [address], 4 09:58:39 Procedures None recorded. Surgeries None recorded. Imaging US, abdomen, complete 2022 023 [email or web address] [facility], [address] [place] [address] , [place], [address], 4 09:53:14 Medication Orders naproxen 500 mg tablet 2024 025 [facility], [address] [place] [address], [address], 5 05:01:21 Zepbound 2.5 mg/0.5 mL subcutaneou s pen injector [address], [address], 5 16:29:22 escitalopra m 20 mg tablet 2022 [email or web address], [address], 5 08:47:35 Lexapro 10 mg tablet [email or web address] [place] [address], [address], 4 09:50:35 Patient TargetsNo targets recorded. Patient Instructions Encounter Date Encounter Id Patient Instructions Last Modified By Organization Details Last Modified Time 06/11/2023 [id number] learning about healthy weight [email or web address] Not available 06/11/2023 10:14:52 body mass index: care instructions [email or web address] Not available 06/11/2023 10:14:52 walking for exercise: care instructions [email or web address] Not available 06/11/2023 09:54:38 heart-healthy diet: care instructions [email or web address] Not available 06/11/2023 09:54:38 05/27/2024 [id number] learning about healthy weight Not available 05/27/2024 09:05:25 body mass index: care instructions [email or web address] Not available 05/27/2024 09:05:25 Reason for Referral Licensed Embalmer Referral for Feeling of lump in throat Referring Physician: Dana Ward, [facility] Medicine, Encounter Date: 05/22/2023 Freight Clerk Referral for Dec reased hearing Referring Physician: Dana Ward [facility] Medicine, Encounter Date: 05/22/2023 Results Created Date Observation Date Name Description Value Unit Range Abnormal Flag Note LastModifiedBy Organization Detail LastModifiedTime 06/11/19 24 06/12/2023 TSH+F REE T4 TSH 1.010 uIU/m L 0.450- 4.500 Not Available [facility] [address] [place], [address], 06/14/2023 07:36:31 06/11/19 24 06/12/2023 TSH+F REE T4 T4,free(dire ct) 1.19 NG/dL 0.82-1 .77 Not Available [facility] [address] [place], [address], 06/14/2023 07:36:31 06/11/19 24 06/12/2023 COMP. METAB OLIC PANEL (14) glucose 83 mg/dL 70-99 Not Available [facility] [address] [place], [address], 06/14/2023 07:36:32 06/11/19 24 06/12/2023 COMP. METAB OLIC PANEL (14) BUN 10 mg/dL 6-20 Not Available [facility] [address] [place], [address], 06/14/2023 07:36:32 06/11/19 24 06/12/2023 COMP. METAB OLIC PANEL (14) creatinine 0.79 mg/dL 0.57-1 .00 Not Available [facility] [address] [facility], [place], [address], 06/14/2023 07:36:32 06/11/19 24 06/12/2023 COMP. METAB OLIC PANEL (14) eGFR 108 mL/mi n/1.7 3 >59 Not Available [facility] [address] [facility], [place], [address], 06/14/2023 07:36:32 06/11/19 24 06/12/2023 COMP. METAB OLIC PANEL (14) BUN/creatini ne ratio 13 9-23 Not Available [facility] [address] [facility], [place], [address], 06/14/2023 07:36:32 06/11/19 24 06/12/2023 COMP. METAB OLIC PANEL (14) sodium 143 mmol/ L 134-14 4 Not Available [facility] [address] [facility], [place], [address], 06/14/2023 07:36:32 06/11/19 24 06/12/2023 COMP. METAB OLIC PANEL (14) potassium 4.3 mmol/ L 3.5-5. 2 Not Available [facility] [address] [facility], [place], [address], 06/14/2023 07:36:32 06/11/19 24 06/12/2023 COMP. METAB OLIC PANEL (14) chloride 107 mmol/ L 96-106 above high normal Not Available [facility] [address] [facility], [place], [address], 06/14/2023 07:36:32 06/11/19 24 06/12/2023 COMP. METAB OLIC PANEL (14) carbon dioxide, total 21 mmol/ L 20-29 Not Available [facility] [address] [facility] [place], [address], 06/14/2023 07:36:32 06/11/19 24 06/12/2023 COMP. METAB OLIC PANEL (14) calcium 9.3 mg/dL 8.7-10 .2 Not Available [facility] [address] [facility], [place], [address], 06/14/2023 07:36:32 06/11/19 24 06/12/2023 COMP. METAB OLIC PANEL (14) protein, total 6.8 g/dL 6.0-8. 5 Not Available [facility] [address] [place], [place], [address], 06/14/2023 07:36:32 06/11/19 24 06/12/2023 COMP. METAB OLIC PANEL (14) albumin 4.4 g/dL 4.0-5. 0 Not Available [facility] [address] [facility] [place], [address], 06/14/2023 07:36:32 06/11/19 24 06/12/2023 COMP. METAB OLIC PANEL (14) globulin, total 2.4 g/dL 1.5-4. 5 Not Available [facility] [address] [facility] [place], [address], 06/14/2023 07:36:32 06/11/19 24 06/12/2023 COMP. METAB OLIC PANEL (14) A/G ratio 1.8 1.2-2. 2 Not Available [facility] [address] [facility] [place], [address], 06/14/2023 07:36:32 06/11/19 24 06/12/2023 COMP. METAB OLIC PANEL (14) bilirubin, total 0.6 mg/dL 0.0-1. 2 Not Available [facility] [facility] [address] [facility] [place], [address], 06/14/2023 07:36:32 06/11/19 24 06/12/2023 COMP. METAB OLIC PANEL (14) alkaline phosphatase 82 IU/L 44-121 Not Available [facility] [facility] [address] [place], [address], 06/14/2023 07:36:32 06/11/19 24 06/12/2023 COMP. METAB OLIC PANEL (14) AST (SGOT) 22 IU/L 0-40 Not Available [facility] [address] [facility] [place], [address], 06/14/2023 07:36:32 06/11/19 24 06/12/2023 COMP. METAB OLIC PANEL (14) ALT (SGPT) 26 IU/L 0-32 Not Available [facility] ([place] [facility]) [address] [facility] [place], [address], 06/14/2023 07:36:32 06/11/19 24 06/12/2023 LIPID PANEL cholesterol, total 170 mg/dL 100-19 9 Not Available [facility] ([place] [facility]) [address] [facility] [place], [address], 06/14/2023 07:36:33 06/11/19 24 06/12/2023 LIPID PANEL triglyceride s 156 mg/dL 0-149 above high normal Not Available [facility] ([place] [facility]) [address] [facility] [place], [address], 06/14/2023 07:36:33 06/11/19 24 06/12/2023 LIPID PANEL HDL cholesterol 41 mg/dL >39 Not Available [facility] [facility] [address] [facility] [place], [address], 06/14/2023 07:36:33 06/11/19 24 06/12/2023 LIPID PANEL VLDL cholesterol derrick 27 mg/dL 5-40 Not Available [facility] [address] [facility], [place], [address], 06/14/2023 07:36:33 06/11/19 24 06/12/2023 LIPID PANEL LDL chol calc ([facility]) 102 mg/dL 0-99 above high normal Not Available [facility] [address] [facility], [place], [address], 06/14/2023 07:36:33 06/11/19 24 06/12/2023 LIPID PANEL comment: ELECTRIC CLOCK MECHANIC Not Available [facility] [address] [facility], [place], [address], 06/14/2023 07:36:33 06/11/19 24 06/14/2023 CHLAM YDIA/ GC AMPLI FICAT ION chlamydia trachomatis, PA Negati ve negati ve Not Available [facility] [address] [facility], [place], [address], 06/14/2023 07:36:34 06/11/19 24 06/14/2023 CHLAM YDIA/ GC AMPLI FICAT ION neisseria gonorrhoeae, PA Negati ve negati ve Not Available [facility] [address] [facility], [place], [address], 06/14/2023 07:36:34 06/11/19 24 06/12/2023 HEMOG LOBIN A1C hemoglobin A1C 5.2 % 4.8-5. 6 Predi abete s: 5.7 - 6.4 Diabe nini: >6.4 Glyce man contr ol for adult s with diabe nini: <7.0 Not Available [facility] [address] [facility], [place], [address], 06/14/2023 07:36:34 05/27/19 25 05/28/2024 TSH+F REE T4 TSH 1.270 uIU/m L 0.450- 4.500 normal Not Available [facility] [address] [place], [address], 05/28/2024 04:35:58 05/27/19 25 05/28/2024 TSH+F REE T4 T4,free(dire ct) 1.02 NG/dL 0.82-1 .77 normal Not Available [facility] [address] [place], [address], 05/28/2024 04:35:58 05/27/19 25 05/28/2024 COMP. METAB OLIC PANEL (14) glucose 92 mg/dL 70-99 normal Not Available [facility] [address] [place], [address], 05/28/2024 04:35:59 05/27/19 25 05/28/2024 COMP. METAB OLIC PANEL (14) BUN 10 mg/dL 6-20 normal Not Available [facility] [address] [place], [address], 05/28/2024 04:35:59 05/27/19 25 05/28/2024 COMP. METAB OLIC PANEL (14) creatinine 0.84 mg/dL 0.57-1 .00 normal Not Available [facility] [address] [place], [address], 05/28/2024 04:35:59 05/27/19 25 05/28/2024 COMP. METAB OLIC PANEL (14) eGFR 100 mL/mi n/1.7 3 >59 normal Not Available [facility] [address] [place], [address], 05/28/2024 04:35:59 05/27/19 25 05/28/2024 COMP. METAB OLIC PANEL (14) BUN/creatini ne ratio 12 9-23 normal Not Available [facility] [address] [place], [place], [address], 05/28/2024 04:35:59 05/27/19 25 05/28/2024 COMP. METAB OLIC PANEL (14) sodium 139 mmol/ L 134-14 4 normal Not Available [facility] [address] [place], [address], 05/28/2024 04:35:59 05/27/19 25 05/28/2024 COMP. METAB OLIC PANEL (14) potassium 4.6 mmol/ L 3.5-5. 2 normal Not Available [facility] [address] [place], [address], 05/28/2024 04:35:59 05/27/19 25 05/28/2024 COMP. METAB OLIC PANEL (14) chloride 105 mmol/ L 96-106 normal Not Available [facility] [address] [facility] [place], [address], 05/28/2024 04:35:59 05/27/19 25 05/28/2024 COMP. METAB OLIC PANEL (14) carbon dioxide, total 23 mmol/ L 20-29 normal Not Available [facility] [address] [facility], [place], [address], 05/28/2024 04:35:59 05/27/19 25 05/28/2024 COMP. METAB OLIC PANEL (14) calcium 9.4 mg/dL 8.7-10 .2 normal Not Available [facility] [address] [facility] [place], [address], 05/28/2024 04:35:59 05/27/19 25 05/28/2024 COMP. METAB OLIC PANEL (14) protein, total 6.4 g/dL 6.0-8. 5 normal Not Available [facility] [address] [facility] [place], [address], 05/28/2024 04:35:59 05/27/19 25 05/28/2024 COMP. METAB OLIC PANEL (14) albumin 4.1 g/dL 4.0-5. 0 normal Not Available [facility] [address] [place], [address], 05/28/2024 04:35:59 05/27/19 25 05/28/2024 COMP. METAB OLIC PANEL (14) globulin, total 2.3 g/dL 1.5-4. 5 Not Available [facility] [address] [place], [address], 05/28/2024 04:35:59 05/27/19 25 05/28/2024 COMP. METAB OLIC PANEL (14) bilirubin, total 0.5 mg/dL 0.0-1. 2 normal Not Available [facility] [address] [facility] [place], [address], 05/28/2024 04:35:59 05/27/19 25 05/28/2024 COMP. METAB OLIC PANEL (14) alkaline phosphatase 75 IU/L 44-121 normal Not Available [facility] [address] [facility] [place], [address], 05/28/2024 04:35:59 05/27/19 25 05/28/2024 COMP. METAB OLIC PANEL (14) AST (SGOT) 22 IU/L 0-40 normal Not Available [facility] [address] [facility] [place], [address], 05/28/2024 04:35:59 05/27/19 25 05/28/2024 COMP. METAB OLIC PANEL (14) ALT (SGPT) 30 IU/L 0-32 normal Not Available [facility] [address] [facility] [place], [address], 05/28/2024 04:35:59 06/05/19 24 US, abdom en, compl ete No observ ation record ed. [email or web address] [address] , [place], [address], 06/09/2023 10:16:15 02/04/20 25 02/03/2025 US, obste tric No observ ation record ed. [email or web address] [facility] [address], [place], [id number], 02/13/2025 10:49:12 04/07/20 25 04/07/2025 imagi ng/di agnos tic resul t No observ ation record ed. [email or web address] [facility] [address], [place], [id number], 04/10/2025 08:12:29 Result Notes None recorded. Problems Name Problem SNOMED Code Status Onset Date Resolution Date Notes Provider Name and Address Organization Details Recorded Time Exposure to SARS-CoV- 2 Completed 03/11/2021 Removal Reason: Problem added by user [email or web address] 4 from the COVID-19 watch flag Felicity Woodward APRN [address], [place], [address], [place] - [facility] 1 16:15:31 Childhood obesity 885981438 Active 2019 Felicity Woodward APRN [address], [place], [address], [place] - [facility] 0 13:16:06 COVID-19 726207490 Active 2021 Albino Bertrand [facility], [place] - [facility] 2 10:40:04 Dizziness 071651970 Active 2022 Fredis Real PA-C [address], [place], [address], [place] - [facility] 3 10:50:16 Acute right otitis media 235789291 Completed 202210/11/2024 Dana Ward APRN [address], [place], [address], [place] - [facility] 5 16:50:06 Feeling of lump in throat 257017814 Active 2022 Fredis Real PA-C [address], [place], [address], [place] [facility] 3 10:50:38 Anxiety 99849228 Active 2022 Dana Ward APRN [address], [place], [address], [place] [facility] 3 09:26:27 Depressiv e disorder 38444335 Active 2022 Dana Ward APRN [address], [place], [address], [place] [facility] 3 09:26:28 Obesity 758950477 Active 2024 Dana Ward APRN [address], [place] , [place], [address], [place] [facility] 5 09:05:17 Pain of right shoulder region Completed 202410/11/2024 Dana Ward APRN [address], [place], [address], [place] [facility] 5 16:50:11 Shoulder strain 183537761 Active 2024 Dana Ward APRN [address], [place], [address], [place] [facility] 5 16:49:59 Neck pain 26420365 Active 2024 Dana Ward APRN [address], [place], [address], [place] [facility] 5 16:54:49 Problem Notes None recorded. Procedures Surgical History Date Name Laterality Status Provider Name and Address Organization Details Recorded Time 12/19/19 23 Cerumen Removal completed Dana Ward APRN [address], [place], [address], [place] - [facility] 12/18/2022 19:44:26 12/13/19 23 IV Infusion completed Dana Ward APRN [address], [place], [address], [place] - [facility] 12/12/2022 16:32:28 Ear Tubes - Tympanostomy Tubes completed Catherine Tran [place] - [facility] 11/14/2019 11:07:25 Imaging Results None recorded. Procedure Notes None recorded. Medical Equipment None Reported. Allergies No known drug allergies Medications Name Sig Start Date Stop Date Status Note LastModified by Organization Details LastModified Time amoxicill in 500 mg capsule Take 1 capsule twice a day by oral route for 10 days. 03/09 completed Not Available Not Available Not Available clindamyc in HCl 300 mg capsule TAKE ONE (1) CAPSULE BY MOUTH EVERY EIGHT (8) HOURS FOR ONE WEEK 04/08 completed Not Available Not Available Not Available [...] ser: kelin wood;Est. Completi on: 05/17/20 15;Pharm acyVerif ied: 05/07/20 15 11:59AM Not Available Not Available Not Available ondansetr on HCl 8 mg tablet TAKE ONE (1) TABLET EVERY 8 HOURS BY ORAL ROUTE NEEDED FOR THREE (3) DAYS. 05/27 completed Not Available Not Available Not Available promethaz ine 12.5 mg tablet TAKE ONE (1) TABLET BY MOUTH EVERY SIX (6) HOURS NEEDED FOR NAUSEA AND VOMITING active Not Available Not Available No t Available metoclopr amide 5 mg tablet 12/22 [...] ser: kelin wood;Est. Completi on: 05/12/20 15;Pharm acyVerif ied: 05/07/20 15 11:59AM Not Available Not [...] Not Available 28 mg iron-800 mcg tablet TAKE 1 TABLET BY MOUTH EVERY DAY FOR SUPPLEME NT active Not Available Not Available No t Available Isibloom 0.15 mg-0.03 mg tablet 11/13 completed Not Available Not Available Not Available Zepbound 2.5 mg/0.5 mL subcutane ous pen injector Inject 2.5 mg every week by subcutan eous route. 10/11 completed Not Available Not Available Not Available Vitals Date Recorded Body height Body mass index (BMI) Body weight Body temperature Heart rate Oxygen saturation Respiratory rate Pain severity - 0-10 verbal numeric rating [Score] - Reported Systolic And Diastolic Provider Name and Address Organization Details Last Updated DateTime 5 161.29 cm 38.4 kg/m2 53861.0 2 g 97.3 [degF] 83 /min 97 % 18 /min 0 110/64 mm[Hg] Celeste Luo [facility] 5 08:46:06 Date Recorded Body height Body mass index (BMI) Body weight Body temperature Heart rate Oxygen saturation Respiratory rate Pain severity - 0-10 verbal numeric rating [Score] - Reported Systolic And Diastolic Provider Name and Address Organization Details Last Updated DateTime 4 161.29 cm 36.5 kg/m2 83546.6 1 g 98 [degF] 93 /min 98 % 18 /min 0 120/78 mm[Hg] Celeste Luo [facility] 4 09:50:00 Date Recorded Body height Body mass index (BMI) Body weight Body temperature Heart rate Oxygen saturation Respiratory rate Pain severity - 0-10 verbal numeric rating [Score] - Reported Systolic And Diastolic Provider Name and Address Organization Details Last Updated DateTime 5 161.29 cm 37.9 kg/m2 34523.3 4 g 98 [degF] 83 /min 98 % 18 /min 5 122/82 mm[Hg] Celeste Luo [facility] 5 16:13:13 Date Recorded Body height Body mass index (BMI) Body weight Body temperature Heart rate Oxygen saturation Respiratory rate Pain severity - 0-10 verbal numeric rating [Score] - Reported Systolic And Diastolic Provider Name and Address Organization Details Last Updated DateTime 3 161.29 cm 35.8 kg/m2 36318.8 4 g 98.6 [degF] 68 /min 98 % 18 /min 0 120/74 mm[Hg] Celeste Luo [facility] 3 16:21:15 Date Recorded Body height Body mass index (BMI) Body weight Body temperature Heart rate Oxygen saturation Systolic And Diastolic Provider Name and Address Organization Details Last Updated DateTime 3 161.29 cm 36.2 kg/m2 41596.4 2 g 97.9 [degF] 82 /min 97 % 122/78 mm[Hg] Celeste Luo [facility] 3 08:09:41 Social History Question Answer Notes LastModified by Organizat ion Details LastModified Time Tobacco Smoking Status Never Smoker Gill cummins [facility] 03/10/2016 15:19:44 Do You Have An Advance Directive? No [email or web address] Information not available 11/14/2019 Are You Blind Or Do You Have Difficulty Seeing? No [email or web address] Information not available 11/14/2019 Is Blood Transfusion Acceptable In An Emergency? Yes [email or web address] Information not available 11/14/2019 What Is Your Level Of Caffeine Consumption? Occasional [email or web address] Information not available 03/10/2016 How Much Tobacco Do You Chew? None Information not available 11/14/2019 Are You Deaf Or Do You Have Serious Difficulty Hearing? No Information not available 11/14/2019 What Type Of Diet Are You Following? REGULAR Information not available 03/10/2016 Which Illicit Or Recreational Drugs Have You Used? Declines [email or web address] Information not available 11/14/2019 What Is The Highest Grade Or Level Of School You Have Completed Or The Highest Degree You Have Received? [id number] [email or web address] Information not available 11/14/2019 How Many Days Of Moderate To Strenuous Exercise, Like A Brisk Walk, Did You Do In The Last 7 Days? 0 [email or web address] Information not available 11/14/2019 On Those Days That You Engage In Moderate To Strenuous Exercise, How Many Minutes, On Average, Do You Exercise? 0 [email or web address] Information not available 11/14/2019 How Hard Is It For You To Pay For The Very Basics Like Food, Housing, Medical Care, And Heating? [id number] [email or web address] Information not available 11/14/2019 What Is The Fluoride Status Of Your Home? Fluoridated [email or web address] Information not available 12/23/2019 What Is Your Home Situation? Both Parents [email or web address] Information not available 03/10/2016 Live Alone Or With Others? With Others Information not available 11/14/2019 Last Menstrual Period? 11/10/2019 [email or web address] Information not available 11/14/2019 What Was The Date Of Your Most Recent Tobacco Screening? 10/11/2024 Information not available 10/11/2024 How Many Children Do You Have? 1 [email or web address] Information not available 11/14/2019 What Is Your Parents' Marital Status? [email or web address] Information not available 03/10/2016 Performs Monthly Self-breast Exam? Yes [email or web address] Information no t available 11/14/2019 Do You Use Protection During Sex? No [email or web address] Information not available 11/14/2019 What Is Your Relationship Status? Information not available 05/27/2024 Do You Use Your Seat Belt Or Car Seat Routinely? Yes Information not available 12/23/2019 Seat Belts Used Routinely Yes [email or web address] Information not available 11/14/2019 Are You Sexually Active? Yes [email or web address] Information not available 11/14/2019 How Much Tobacco Do You Smoke? No [email or web address] Information not available 11/14/2019 General Stress Level Low [email or web address] Information not available 11/14/2019 Do You Use Sunscreen Routinely? No [email or web address] Information not available 11/14/2019 Do You Have Difficulty Walking Or Climbing Stairs? No [email or web address] Information not available 11/14/2019 Sex: Female Functional Status Question Answer Note LastModified by Organizat ion Details LastModified Time What is your level of alcohol consumption? None [email or web address] Information not available 11/14/2019 Do you or have you ever used smokeless tobacco? Never used smokeless tobacco [email or web address] Information not available 11/14/2019 Are you currently employed? Yes Information not available 11/14/2019 Are you able to walk independently without assistance or assistive devices? YESWOREST [email or web address] Information not available 11/14/2019 Do you have difficulty doing errands alone? No [email or web address] Information not available 11/14/2019 Do you have difficulty dressing, bathing, grooming, or toileting? No [email or web address] Information not available 11/14/2019 Do you or have you ever used e-cigarettes or vape? Never used electronic cigarettes [email or web address] Information not available 11/14/2019 What is your exercise level? Moderate [email or web address] Information not available 03/10/2016 Mental Status Question Answer Note LastModified by [employer] Details LastModified Time Do you feel stressed (tense, restless, nervous, or anxious, or unable to sleep at night)? [id number] [email or web address] Information not available 11/14/2019 Do you have difficulty concentrating, remembering or making decisions? No [email or web address] Information no t available 11/14/2019 Family History Relationship Description Onset Age of this Age Resolved Age Notes LastModified by Organization Details LastModified Time Father No current problems or disability [email or web address] Not available 11/13 11:05:25 Mother No current problems or disability [email or web address] Not available 11/13 11:05:25 Medical History Condition [...] Obesity N Vision or Eye Problems N Restless Leg Syndrome N Arthritis N Infertility N Polyps N Carpal Tunnel N Acid Reflux (GERD) N Cancer N Stroke N Varicosities N Tendonitis N Crohn's Disease N Hypercholesterolemia N Skin Cancer N Fibromyalgia N Headaches N Anal Fissure N Irritable Bowel Syndrome N Kidney Disease N Heart Problems N [...] Cancer N Hernia N Plantar Fasciitis N Lung Disease N Hypothyroidism N Defects or Inherited Disease N Breast Problem N Ovarian Cyst N Anesthesia Complications N Testosterone Deficiency N Interstitial Cystitis N Congenital Anomalies N Hypoglycemia N Blood clot N Vitamin D Deficiency N Cellulitis N Endometriosis N Fracture N Bladder or Kidney Problems N Panic Disorder N Schizophrenia N Concussion [...] colitis N Cerebrovascular Disease N Depression N Guillain-Anita N Sleep Apnea N Aneurysm N Bronchitis [...] ICD10 Code Diagnosis IMO Codes Diagnosis Note [id number] Felicity Woodward [place] [address] [place] [address] 03/10/2016 14:44:04 03/11/2016 08:13:15 History and physical examination, sports participation [id number] Z02.5 [id number] REYNA Handley ACADEMIC INTERVENTIONIST [address] [facility] [place] [address] 11/14/2019 10:57:20 11/14/2019 11:30:33 Painless rectal bleeding 034612510 K62.5 [id number] Felicity Woodward [place] [address] [place] [address] 12/23/2019 09:21:48 12/23/2019 10:38:55 Pharyngitis 576487647 J02.9 Streptococ derrick tonsillitis 87381344 J03.00 Childhood obesity 922824 003 Z68.54 [id number] Felicity Woodward[address] [place] [address] 07/18/2020 09:59:52 07/18/2020 11:45:06 Pain of left wrist [id number] 18607 M25.532 Closed fra cture of left wrist 0557295378 0991845 S62.92XA [id number] Felicity Woodward[address] [place] [address] 03/11/2021 10:59:12 03/11/2021 13:11:25 Viral screening 198050546 Z11.52 [id number] Dana Ward [address] [place] [address] 06/20/2021 10:21:26 06/20/2021 11:00:55 Cough 26820331 R05.9 Acute uppe r respiratory infection 25494023 J06.9 [id number] Albino Bertrand [address] [place] [address] 06/24/2021 09:53:49 06/24/2021 10:53:45 Viral screening 963753449 Z11.52 Viral syndrome 750914476 B34.9 COVID-19 265089785 U07.1 [id number] Dana Ward [address] [place] [address] 10/07/2021 16:06:03 10/07/2021 16:43:08 Pain of right knee joint 2969560693 89062 M25.502 [id number] Lopez Jacob MD [address] [place] [address] 04/10/2022 15:20:55 04/10/2022 15:46:13 Fever 594762272 R50.9 sx seem mostly resolved; Pt elects for conservati ve tx with OTC products at this time [id number] Dana Ward [address] [place] [address] 12/12/2022 12:57:09 12/12/2022 14:44:46 Viral screening 669466511 Z11.59 Nausea and vomiting 1693 1999 R11.2 Advised patient to drink clear fluids only, particular ly Gatorade (1-2 oz at a time, taken every 10-15 min if able) and rest. May consider clear broth as tolerated. Also consider a BRAT diet: bananas, rice, applesauce , toast, in moderation . Body mass index 30+ - obesity 043663578 Z68.32 Obesity 577573834 E66.9 Dizziness 204361438 R42 Patient notes some improvemen t in symptoms post IV infusion.A dvise patient to increase fluid intake.Adv ised patient do not drive while dizzyEduca miguelina patient on signs/symp toms that indicate need for immediate evaluation in the ED. Patient verbalized understand ing.RTO in 2-3 days if symptoms have not improved. [id number] Dana Ward [facility] [address] [place], [place] [address] [place] [address] 12/18/2022 16:16:01 12/18/2022 17:12:53 Dizziness 135923054 R42 Advise patient to increase fluid intake.Adv ised patient do not drive while dizzyEduca miguelina patient on signs/symp toms that indicate need for immediate evaluation in the ED. Patient verbalized understand ing. Impacted c erumen of bilateral ears [id number] 580071 H61.23 Advised patient to discontinu e use of cotton swabs for ear wax removal. [id number] Dana Ward [facility] [address] [place], [place] [address] [place] [address] 12/30/2022 16:45:59 12/30/2022 17:29:54 Acute right otitis media 002726942 H66.91 Patient presents with signs/symp toms of otitis media. Will treat as below. Supportive care reviewed: humidifier use, raise HOB, saline nasal spray, encourage PO fluids. Recommende d acetaminop hen/ibupro fen PRN pain RTO in 7 days if symptoms have not improved. Or sooner if symptoms worsen. Feeling of lump in throat 273012825 F45.8 Advised patient that GI referral may be needed to further evaluate the sensation of food becoming stuck in her throat. Patient verbalized understand ing. States she would like to begin with state wildlife officer referral before being referred to GI. Educated on signs/symp toms that indicate need for immediate evaluation in the ED. [id number] Fredis Real PA-C [address] [address] 01/08/2023 10:10:00 01/08/2023 10:57:21 Dizziness 455475894 R42 Ensure adequate hydration, take ABX for otitis media, return for worsening or concerning symptoms. Acute righ t otitis media 457276309 H66.91 Discussed supportive care with patient. take ABX as previously prescribed . Discussed expected course and cautioned signs and sxs to seek further treatment. [id number] Dana Ward [address] [place] [address] 03/09/2023 16:24:53 03/09/2023 17:06:07 Anxiety 98261034 F41.9 BAILEY-7 score of 15 Depressive disorder 3548 9007 F32.A PHQ-9 score of 19 [id number] Dana Ward [address] [place] [address] 04/06/2023 16:14:52 04/06/2023 17:04:24 Anxiety 73713092 F41.9 BIALEY-7 score of 3 Depressive disorder 3548 9007 F32.A PHQ-9 score of 2 [id number] Dana Ward [address] [place] [address] 05/22/2023 08:04:34 05/22/2023 08:37:09 Feeling of lump in throat 108186998 F45.8 Depressive disorder 3548 9007 F32.A PHQ-9 score of 2 Anxiety 18371358 F41.9 BAILEY-7 score of 3 Abdominal pain 85437733 R10.9 Decreased hearing 259934 001 H91.92 [id number] Dana Ward [address] [place] [address] 06/11/2023 09:39:43 06/11/2023 10:22:34 General examination of patient 845005191 Z00.00 Screening for cardiovascular system disease 960031936 Z13.6 Endocrine/ metabolic screening 640087940 Z13.228 Exercises education, guidance, and counseling 153122036 Z71.82 The patient was advised to continue a healthy diet and exercise regularly. Dietary ma nagement surveillance 600635184 Z71.3 Venereal d isease screening 783459452 Z11.3 Body mass index 30+ - obesity 185084875 Z68.36 Obesity 807365408 E66.9 [id number] Dana Dialloguru [address] [place] [address] 05/27/2024 08:39:48 05/27/2024 09:28:05 Body mass index 30+ - obesity 701959805 Z68.38 Begin prescribed medication as written. Discussed potential side effects. Patient denies personal or family history of medullary thyroid carcinoma (MTC) and multiple endocrine neoplasia syndrome type 2. Obesity 613508210 E66.9 Endocrine/ metabolic screening 678314966 Z13.073 [id number] Dana Diallossie[address] [place] [address] 10/11/2024 15:52:24 10/11/2024 16:49:40 Shoulder strain 549455815 S46.911A [id number] Patient advised to take medication as directed here. No need for imaging at this time. Patient advised to rest initially and then slowly increase activity level. Recommende d supportive care including heat, rest, and stretching exercises. Neck pain 03109860 M54.2 [id number] Health Concerns Section Related Observation LastModified by Organization Detai ls LastModified Time None Recorded Concern Status LastModified by Organization Details LastModified Time None Recorded Advance Directives Directive N: Payers Insurance Date Sequence Insurance Name Policy Number Policy Echevarria Covered Member ID Echevarria Member ID Guarantor Name 05/27/2024 1 [facility] (MEDICAID HMO) Sanjana Marcellus [id number] Sanjana Marcellus 12/24/2022 1 *SELF PAY* De lla Marcellus 04/08/2025 2 PASSPORT BY [facility] (MEDICAID REPLACEMENT - HMO) Sanjana Marcellus [id number] Sanjana Marcellus 05/27/2024 [place] [facility] [place]MEDICAID[place] [id number] Sanjana R Marcellus [id number] Sanjana Marcellus 03/11/2021 1 [place] [id number] Sanjana R Bowling [id number] Sanjana Marcellus 11/14/2019 1 *SELF PAY* De lla Marcellus 04/08/2025 [place] [facility] [place] Sanjana R Marcellus [id number] Sanjana Marcellus 12/12/2022 1 [facility] (MEDICAID HMO) Sanjana Bowling [id number] Sanjana Marcellus 04/08/2025 1 [place] [id number] Sanjana R Marcellus [id number] Sanjana Marcellus Notes Date Note Type Note [...] pain, SoB, fever, and n/v/d. Dana Ward, [employer]IST[employer] MET[employer] READER [address], [place], [address], [place] - [facility] 04/06/2023 16:52:26 05/22/2023 text/html [...] and constipation. Dana WardREYNA [address], [place], [address], [facility] - [facility] 06/01/2023 11:04:39 06/11/2023 text/html Patient presents for annual wellness exam. Dana WardREYNA [address], [place], [address], [facility] - [facility] 06/11/2023 10:21:06 05/27/2024 text/html ROS as noted in the HPI Patient presents to discuss weight loss injections. Patient expressing concerns of difficulty loosing weight. Denies chest pain, SOA, fever, and n/v/d. Dana Ward APRN [address], [place], [address], [facility] - [facility] 05/27/2024 09:21:14 10/11/2024 [...] n/v/d. Dana Ward APRN [address], [place], [address], [facility] - [facility] 10/11/2024 16:55:13 OBGyn Episode Ob Episode Information Episode Created Date Number of Fetuses Patient Bloodtype Patient rh Status Prepregnancy Weight lbs Domestic Partner Domestic Partner Phone Father Name Deportation Officer Status 11/14/19 20 1 CLOSED Fetus Data First Name Last Name Admitted to NICU Weight (g) Sex Living Outcome Pediatric Complications Fetus ID Race Codes Race Delivery Type 3572.03 7 F Full Term [id number] Vaginal Pedrito Calculation Initial Pedrito Date Initial [...] Complications Tubal Sterilization Discharge Date Comments 9 [facility] idural 40 26 Discharge Information Feeding Method Contraceptive Method Maternal HG B and HCT Levels
[2025-04-14 08:56] LABS: Glucose,Fasting 85 mg/dl (74-100)
[2025-04-14 09:38] LABS: Total Iron Binding Capacity 552 ug/dL (265-497)
[2025-04-14 10:04] LABS: Ferritin 7.08 ng/ml (6.24-137)
[2025-04-14 10:18] LABS: Vitamin B12 272 pg/mL (239-931)
[2025-04-14 10:34] LABS: Folate 18.30 ng/mL
[2025-04-14 12:24] LABS: Glucose 1 Hour 156 mg/dL (74-100); Glucose 2 Hour 103 mg/dL (74-100); Glucose 3 Hour 103 mg/dL (74-100)
== END 2025-04-14 23:59 | disposition home or self-care (01) ==
LOC: LAB 08:09
PROVIDERS: PCP Nurse Practitioner Family; Visit Provider Obstetrics & Gynecology
DX: O10.919 Unspecified pre-existing hypertension complicating pregnancy, unspecified trimester (principal); O99.210 Obesity complicating pregnancy, unspecified trimester; E66.9 Obesity, unspecified; Z3A.00 Weeks of gestation of pregnancy not specified
CPT/HCPCS: 36415; 82607; 82728; 82746; 82951; 83550

== ENCOUNTER 2025-05-09 15:34 | Outpatient (CLI) | payer BC, MEDICAID, SELFPAY ==
--- NOTE | 2025-05-09 15:30 | US_ITS ---
PROCEDURE: US OB BIOPHYSICAL PROFILE CLINICAL INDICATION: Growth/BPP COMPARISON: US US OB /MATERNAL DETAIL from 02/03/2025 US US OB FOLLOW UP from 04/07/2025 FINDINGS: Transabdominal sonographic images of the uterus were obtained. From her established due date she is 32weeks 4days. The following parameters are obtained: Viable Fetus in the cephalic presentation with an anterior placenta grade 1. There continue to be multiple lakes along the inferior aspect of the placenta Average ultrasound age is 32weeks 5days Estimated weight 1,983g, 4 lb 6 oz Measurements: heart Rate = 133bpm BPD = 32weeks 2days, 33 percentile HC = 33weeks 4days, 38 percentile AC = 32weeks 3days, 43 percentile FL = 32weeks 3days, 33 percentile HC/AC is 1.07 FL/BPD is 0.78 FL/AC is 0.22 37 percentile Amniotic fluid index: 12.42cm, MVP 4.41 cm. Qualitative AFV:2 Breathing movements: 2 Gross Body Movements: 2 Tone: 2 Biophysical profile score: 8 No obvious anomalies evident.Kidneys, profile, stomach, bladder, four-chamber heart, three-vessel cord appear normal. IMPRESSION: 1. Viable fetus in the cephalic presentation with an anterior placenta grade 1. 2. There continue to be multiple small placental lakes especially along the inferior border. 3. The fluid is within normal limits with an amniotic fluid index 12.42 cm, MVP 4.41 cm. 4. Biophysical profile is 8/8 with good breathing movement and movement seen. 5. There has been good interval growth with the fetus currently 37th percentile. 6. Limited anatomical scan appears normal. Dictated by: Kamaljit Barker MD 05/09/2025 16:06 Kamaljit Barker MD in OV 05/09/2025 16:06
== END 2025-05-09 23:59 | disposition home or self-care (01) ==
LOC: RAD 15:34
PROVIDERS: PCP Nurse Practitioner Family; Visit Provider Obstetrics & Gynecology
DX: O28.3 Abnormal ultrasonic finding on antenatal screening of mother (principal); O10.913 Unspecified pre-existing hypertension complicating pregnancy, third trimester; O99.213 Obesity complicating pregnancy, third trimester; O99.013 Anemia complicating pregnancy, third trimester; E66.9 Obesity, unspecified; Z3A.32 32 weeks gestation of pregnancy
CPT/HCPCS: 76816; 76819

== ENCOUNTER 2025-05-23 14:32 | Outpatient (CLI) | payer BC, MEDICAID, SELFPAY ==
[2025-05-23 14:56] LABS: Hematocrit 33.4 % (37.0-47.0); Hemoglobin 10.9 g/dL (12.2-16.2); Immature Granulocytes % 0.9 %; Mean Corpuscular HGB Conc 32.6 g/dL (31.8-35.4); Mean Corpuscular Hemoglobin 28.9 pg (27.0-31.2); Mean Corpuscular Volume 88.6 fl (81-99); Nucleated Red Blood Cells % 0 %; Platelet Count 180 K/mm3 (142-424); Red Blood Count 3.77 M/mm3 (4.20-5.40); Red Cell Distribution Width-SD 45.3 fL; White Blood Count 7.8 K/mm3 (4.8-10.8)
== END 2025-05-23 23:59 | disposition home or self-care (01) ==
LOC: LAB 14:32
PROVIDERS: PCP Nurse Practitioner Family; Visit Provider Obstetrics & Gynecology
DX: O10.919 Unspecified pre-existing hypertension complicating pregnancy, unspecified trimester (principal)
CPT/HCPCS: 36415; 85025